=== PATIENT | male | born 1940 | race Caucasian/White ===

== ENCOUNTER 2019-05-10 11:46 | Observation (INO) ==
--- NOTE | 2019-05-10 12:35 | PROVIDER DOCUMENTATION ---
HPI-General Adult - General Stated Complaint: AFIB Time Seen by Provider: 05/10/19 12:29 Source: patient Allergies/Adverse Reactions: Patient Allergies Allergy/AdvReac Type Severity Reaction Status Date / Time No Known Allergies Allergy Verified 02/04/16 12:13 Home Medications: Home Medication List Medication Instructions Recorded Confirmed Last Taken Type Lisinopril/Hydrochlorothiazide 1 dose PO DAILY 02/04/16 03/20/16 03/20/16 04:30 History [Lisinopril-Hctz 10-12.5 mg Tab] Sertraline [Zoloft] 100 mg PO HS 02/04/16 03/20/16 03/19/16 18:00 History Digoxin [Lanoxin] 125 microgm PO DAILY #30 tablet 02/07/16 03/20/16 03/20/16 04:30 Rx Sotalol HCl [Sotalol] 120 mg PO BID #60 tablet 02/07/16 03/20/16 03/20/16 04:30 Rx SIMVAstatin [Zocor] 10 mg PO QHS 03/19/16 03/20/16 03/19/16 18:00 History - History of Present Illness -Gen Adult Nature of Presenting Problems: Pt. is 78 yom that presents with c/o low blood pressure. Pt. reports he was at his doctors office and they sent him to the ED because his BP was low. He den ies any complaints at time of exam. Location of Pain/Injury: reports: none. denies: head, face, mouth, neck, chest, upper extremity, hand(s), abdomen, back, pelvis, genitalia, lower extremity, feet, upper body, lower body, generalized, other Pain Radiation: reports: no radiation. denies: arm(s), back, buttocks, chest, epigastric, feet, groin, jaw, flank (L), legs (lower), LLQ, LUQ, neck, periumbilical, flank (R), RLQ, RUQ, shoulder(s), scapula, scrotal, sternal notch, suprapubic, legs (upper), urethral, vaginal, other Quality of Pain: reports: none. denies: aching, burning, pressure, tightness Severity: reports: mild. denies: moderate, severe Onset/Duration: reports: abrupt, just prior to arrival Timing: reports: gone now. denies: still present, improving, intermittent, getting worse Context/Activities at Onset: reports: none. denies: light activity, moderate activity, vigorous activity, recent emotional stress, recent physical stress, recent trauma history, possible bad food, cold exposure, eating, out of country travel, rest, sleep, sexual activity, other Modifying Factors: improves with: nothing Associated Symptoms: reports: denies symptoms. denies: anxiety, arm pain, ba ck/neck pain, chest pain, constipation, cough, diaphoresis, diarrhea, dizziness, EENT symptoms, fatigue, fever/chills, genitourinary problems, headaches, heartburn, joint pain, loss of appetite, malaise, muscle aches, sinus congestion/drainage, nausea, rash, seizure, shortness of breath, sensory/motor loss, pain with inspiration, swelling/mass in abdomen, syncope, vomiting, weakness, trouble walking, other Similar Symptoms Previously?: No Recently seen or treated by another doctor?: Yes Review of Systems - Adult - REVIEW OF SYSTEMS - ADULT Constitutional: reports: no symptoms reported Eyes: reports: no symptoms reported Ears, Nose, Mouth & Throat: reports: no symptoms reported Cardiovascular: reports: see HPI, irregular heart rate. denies: edema, p alpitations, syncope Respiratory: reports: no symptoms reported Gastrointestinal: reports: no symptoms reported Genitourinary: reports: no symptoms reported Musculoskeletal: reports: no symptoms reported Integumentary: reports: no symptoms reported Neurological: reports: no symptoms reported Psychiatric: reports: no symptoms reported Past History - Adult - PAST MEDICAL HISTORY-ADULT Review of Records: reports: Old Records Reviewed, Nursing Assessment Review, Medications Reviewed, Social history reviewed & non-contributory. Major Childhood Illnesses: reports: denies history Cardiovascular: reports: HTN, hyperlipidemia Respiratory: reports: denies history Gastrointestinal: reports: GERD Musculoskeletal: reports: denies history Neurological: reports: denies history Psychiatric: reports: denies history Endocrine/Immune: reports: denies history Other Conditions: reports: denies history - PRIOR SURGERIES/PROCEDURES Surgical/Procedure History: reports: none - IMMUNIZATION STATUS Childhood Immunizations: See Nurse Assessment Flu Vaccine: See Nurse Assessment - FAMILY HISTORY Family History: reviewed, not pertinent - SOCIAL HISTORY Smoking: denies Physical Exam-General - PHYSICAL EXAM-ADULT Initial Vital Signs Reviewed: Yes - CONSTITUTIONAL General Appearance: alert, no apparent distress. negative: anxious, obtunded, combative - EYES Eyes: PERRL/EOMI, pink conjunctivae - HEAD, EARS, NOSE, MOUTH & THROAT HENMT: normocephalic/atraumatic, moist mucous membranes - NECK Neck: non-tender, full range of motion, supple, normal inspection - RESPIRATORY Respiratory: lungs clear, normal breath sounds - CARDIOVASCULAR Cardiovascular: irregularly irregular. negative: extra beats, friction rub - GASTROINTESTINAL (ABDOMEN) Abdominal Exam: normal bowel sounds, non tender, soft - LYMPHATIC Lymphatic: no adenopathy - MUSCULOSKELETAL Back Exam: normal inspection, no CVA tenderness, no vertebral tenderness Extremity: normal range of motion, non-tender, normal inspection Peripheral Pulses: radial (R): 2+, radial (L): 2+ - SKIN Integumentary: normal color, normal turgor, warm/dry - NEUROLOGIC Neurologic: grossly normal, no motor/sensory deficits - PSYCHIATRIC Psych/Mental Status: normal mood/affect, normal thought content, normal thought process, oriented x 3. negative: anxious, paranoid, tearful Progress - PLAN OF CARE/RESULTS Progress/Plan/Lab Results: Vital Signs - 8 hr 05/10/19 11:51 Temperature 98.0 F Pulse Rate 89 Respiratory Rate 16 Blood Pressure 139/79 O2 Sat by Pulse Oximetry 90 L Orders Category Date Time Status Saline Loc NOW Care 05/10/19 12:27 Active CHEST-PORTABLE [RAD] Stat Exams 05/10/19 12:28 Ordered CBC WITH ELECTRONIC DIFF [HEME] Stat Lab 05/10/19 12:27 Uncollected CK PROFILE [SP CHEM] Stat Lab 05/10/19 12:27 Uncollected COMPREHENSIVE METABOLIC PANEL [CHEM] Stat Lab 05/10/19 12:27 Uncollected PRO B-NATRIURETIC PEPTIDE Stat Lab 05/10/19 12:28 Ordered PROTIME WITH INR [COAG] Stat Lab 05/10/19 12:32 Uncollected PTT [COAG] Stat Lab 05/10/19 12:32 Uncollected TROPONIN T Stat Lab 05/10/19 12:28 Uncollected EKG [EKG] Stat Ther 05/10/19 12:27 Ordered Laboratory Tests 05/10/19 05/10/19 05/10/19 12:57 12:57 12:57 WBC RBC Hgb Hct MCV MCH MCHC RDW Std Deviation Plt Count MPV Immature Gran % (Auto) Neut % (Auto) Lymph % (Auto) [place] % (Auto) Eos % (Auto) Baso % (Auto) Immature Gran # (Auto) Neut # (Auto) Lymph # (Auto) [place] # (Auto) Eos # (Auto) Baso # (Auto) PT 19.8 H INR 1.64 PTT (Actin FS) 31.2 Sodium Potassium Chloride Carbon Dioxide Anion Gap BUN Creatinine Estimated GFR/1.73 m2 BUN/Creatinine Ratio Glucose Calculated Osmolality Calcium Total Bilirubin AST ALT Alkaline Phosphatase Creatine Kinase Troponin T 0.073 Hma-A-Uxbzebgecdn Pept 1923 H Total Protein Albumin Globulin Albumin/Globulin Ratio 05/10/19 05/10/19 12:57 12:57 WBC 9.79 RBC 4.80 Hgb 14.4 Hct 42.4 MCV 88.3 MCH 30.0 MCHC 34.0 RDW Std Deviation 14.2 Plt Count 235 MPV 10.2 Immature Gran % (Auto) 0.3 Neut % (Auto) 76.2 H Lymph % (Auto) 11.6 L [place] % (Auto) 9.9 H Eos % (Auto) 1.6 Baso % (Auto) 0.4 Immature Gran # (Auto) 0.03 Neut # (Auto) 7.45 H Lymph # (Auto) 1.14 L [place] # (Auto) 0.97 H Eos # (Auto) 0.16 Baso # (Auto) 0.04 PT INR PTT (Actin FS) Sodium 136 Potassium 4.5 Chloride 99 Carbon Dioxide 22 L Anion Gap 15 BUN 25 H Creatinine 1.3 H Estimated GFR/1.73 m2 54 BUN/Creatinine Ratio 19 Glucose 103 Calculated Osmolality 277 Calcium 9.6 Total Bilirubin 0.69 AST 26 ALT 14 Alkaline Phosphatase 162 H Creatine Kinase 83 Troponin T Oiu-L-Pjcblgnzmuk Pept Total Protein 8.2 Albumin 4.7 Globulin 3.5 Albumin/Globulin Ratio 1.3 Discussed results and plan of care with patient. Patient agrees with plan and verbalizes understanding. Result Diagrams: 05/10/19 12:57 05/10/19 12:57 - EKG 1 Time of EKG reading by physician:: 11:57 EKG Read and Signed by:: Luis Miguel Gomez EKG Interpretation (*Must complete 3 of following elements*): Abnormal Rate: 90 Rhythm: A-Fib - CONSULTS/PCP/HOSPITALIST Notification #1 *Consult/PCP/Hospitalist*: Patrizia for Dr. Greenwood Time Discussed: 14:22 Reason/Comments: Consult Consult Disposition: other #2 Consult: Triny for Dr. Arechiga Time Discussed: 14:23 Reason/Comments: Admission Consult Disposition: Will see in ED, Admit Departure - Departure Date of Disposition Decision: 05/10/19 Time of Disposition Decision: 14:24 DIAGNOSIS: Dizziness, Near syncope A-fib Qualifiers: Atrial fibrillation type: unspecified Qualified Code(s): I48.91 - Unspecified atrial fibrillation Disposition: ADMITTED INPATIENT 09 Certified Medical Emergency: Emergent Condition: Stable Referrals and Follow-Ups: Mei Finn MD [Primary Care Provider] - - Critical Care Note This patient required my direct & personal management of CC.: No Attestation - Physician/ [place] Attestation Patient care was provided by Advanced Practice Provider:: Yes Advanced Practice Provider:: Nimo Marie Advanced Practice Provider documentation review:: The Mid-level provider documentation, treatment plan and medical decision making was reviewed by the physician who agrees with all treatment and medical decision making by the MLP. The physician spent face to face time with patient:: No Advanced Practice Provider documentation review:: Supervising physician onsite and consulted in the evaluation and care of this patient. The physician did not have a face to face encounter with the patient.
[2019-05-10 13:10] LABS: BASO# 0.04 X1000 (0.0-0.2); BASO% 0.4 % (0.0-0.8); EOS# 0.16 X1000 (0.0-0.7); EOS% 1.6 % (0.0-10.0); HEMATOCRIT 42.4 % (42.0-52.0); HEMOGLOBIN 14.4 g/dL (14.0-18.0); IMM GRAN# 0.03 X1000 (0.0-0.04); IMM GRAN% 0.3 % (0.0-0.5); LYMPH# 1.14 X1000 (1.2-3.4); LYMPH% 11.6 % (20.5-51.1); MCV 88.3 FL (81-99); MONO# 0.97 X1000 (0.11-0.59); MONO% 9.9 % (1.7-9.3); MPV 10.2 FL (7.4-10.4); NEUT# 7.45 X1000 (1.4-6.5); NEUT% 76.2 % (42.2-75.2); PLT 235 X1000 (130-400); RDW 14.2 % (11.5-14.5); WBC 9.79 X1000 (4.8-10.8)
[2019-05-10 13:18] LABS: INR 1.64; PROTIME 19.8 Seconds (11.0-16.0); PTT 31.2 Seconds (22.3-41.8)
[2019-05-10 13:30] LABS: ALB/GLOB RATIO 1.3; ALBUMIN 4.7 g/dL (3.5-5.0); CALCIUM 9.6 mg/dL (8.8-10.2); CREATININE 1.3 mg/dL (0.7-1.2); POTASSIUM 4.5 mmol/L (3.5-5.1); TOTAL BILIRUBIN 0.69 mg/dL (0.20-1.00); TOTAL PROTEIN 8.2 g/dL (6.3-8.3)
--- NOTE | 2019-05-10 13:36 | Diag Imaging Result Doc PS360 ---
EXAM: CHEST-PORTABLE 05/10/2019 HISTORY: CP TECHNIQUE: AP portable at 1323 COMMENT: There are some platelike opacities in the left base which are probably due to fibrosis. This has not changed appreciably since 02/04/2016. The heart size and pulmonary vascularity are similar in appearance as well. There are emphysematous changes in the upper lung zones. IMPRESSION: COPD. Electronically signed by Kristopher Nieto 05/10/2019 1:34 PM
--- NOTE | 2019-05-10 15:11 | EKG Report ---
Test Performed on : 05/10/2019 12:37:31 PM Test Reason : CP Blood Pressure : / mmHG Vent. Rate : 080 BPM Atrial Rate : 375 BPM P-R Int : 000 ms QRS Dur : 088 ms QT Int : 368 ms P-R-T Axes : 000 059 003 degrees QTc Int : 424 ms Atrial fibrillation. Low voltage QRS Nonspecific ST abnormality Abnormal ECG No previous ECGs available Unconfirmed Result
[2019-05-10] MEDS ORDERED: ZOFRAN IV PRN (16:07)
[2019-05-10] MEDS ORDERED: NS 500 ML IV ONE (16:07)
[2019-05-10] MEDS ORDERED: TYLENOL PO PRN (16:07)
--- NOTE | 2019-05-10 17:33 | ECHO REPORT ---
ORDER DATE: 05/10/2019 INDICATION: Atrial fibrillation. FINDINGS: 1. Right atrium appears moderately enlarged with a dimension of 5.3 cm. 2. Mild tricuspid regurgitation. The RV systolic pressure is 60. 3. Normal RV systolic function. The right ventricle does appear to be dilated. 4. No significant pulmonic insufficiency. 5. Mild left atrial enlargement with a dimension of 4 cm. 6. No mitral prolapse. Mild mitral regurgitation. 7. Normal LV size, end-diastolic dimension of 5.5 cm. Normal wall thicknesses with a posterior and interventricular septal thickness of 1.1 cm each. Normal LV systolic function. Estimated EF of 55 to 60% with normal wall motion. 8. Aortic valve appears somewhat calcified. The peak gradient across the valve is 19 with a mean of 12. Valve area is 2.16 cm2. This would suggest minimal aortic stenosis. There is mild aortic insufficiency. The valve is trileaflet. 9. Aorta appears normal in visualized segments. 10. There is no pericardial effusion identified on this study. cc: Porfirio Upton MD
--- NOTE | 2019-05-10 21:08 | HISTORY AND PHYSICAL ---
PRIMARY CARE PROVIDER: Mei Finn MD [employer] HAND: David Hendrickson MD CHIEF COMPLAINT: Dizzy spells and weakness. HISTORY OF PRESENT ILLNESS: Mr. Millan is a 78-year-old male who carries a past medical history of atrial fibrillation, status post cardioversion in 2016. Per son's report, he thought that he was in a normal rhythm since that time. Other history: Hypertension, dyslipidemia, stress and depression. The patient reports for the last couple of months, he has been having dizzy spells, weakness with walking, shortness of breath with ambulation, especially in the heat or when climbing stairs. Son at the bedside also reports a decrease in his memory. He denies any palpitations, chest pain, nausea, vomiting, diarrhea, constipation, fever or chills. He did go to be checked out at his primary care provider Dr. Mei Finn's office today. There was a reported near-syncope episode; however, the patient and his son deny, but they were told that he had a lower blood pressure and his heart rhythm was "running away." Unsure at the time in office if it was atrial fibrillation with RVR; however, now he has atrial fibrillation without RVR, rate- controlled in the 80s. First set of troponins is 0.073. He does have an acute kidney injury with a BUN of 25, creatinine 1.3. Digoxin level 0.9. We will admit him to medical telemetry, do an echocardiogram, continue to trend his troponins and continue him on his home digoxin. He does not look like he is on any anticoagulation at home except for a low-dose aspirin. We will consult Dr. Greenwood as well. PAST MEDICAL HISTORY: 1. Atrial fibrillation. 2. Hypertension. 3. Dyslipidemia. 4. Stress. 5. Depression. PAST SURGICAL HISTORY: None. FAMILY HISTORY: Positive for hypertension. SOCIAL HISTORY: He lives with his son. He quit smoking over 10 years ago, but he was about a pack to 8-aers-dea-day smoker. No alcohol, tobacco or illicit drug use. He has been retired for quite some time. ALLERGIES: No known drug allergies. MEDICATIONS: Home medications are being compiled. REVIEW OF SYSTEMS: Twelve-point review of systems was completed and negative except for those mentioned in HPI. PHYSICAL EXAMINATION: VITAL SIGNS: Temperature is 98 degrees, heart rate 92, respirations 22, blood pressure 133/69, O2 is 95% on room air. GENERAL: Mr. Millan is a pleasant but vbfs-vb-diictdl 78-year-old male who is lying on the stretcher in no acute distress. HEENT: Atraumatic, normocephalic. PERRL. NECK: Supple. Trachea midline. CARDIOVASCULAR: Irregularly irregular. No murmurs, gallops or rubs. RESPIRATORY: Lung sounds clear bilaterally. GASTROINTESTINAL: Soft, nontender, nondistended. Positive bowel sounds x4 quadrants. EXTREMITIES: Lower extremities are negative for edema. NEUROLOGIC: No focal deficits noted. He is hard of hearing. DIAGNOSTIC DATA: EKG: Atrial fibrillation at 80 beats per minute. Chest x-ray: COPD. LABORATORY DATA: White count 9, hemoglobin and hematocrit 14 and 42, platelet count is 235,000. PT is 19.8, INR 1.64. Sodium 136, potassium 4.5, BUN 25, creatinine 1.3, blood glucose is 103, alkaline phosphatase is 162. ProBNP was 1923. Digoxin level is 0.9. ASSESSMENT AND PLAN: 1. Weakness and shortness of breath associated with atrial fibrillation. There was some reported hypotension at the doctor's office. He is now normotensive. We will admit him to medical telemetry floor. Consult Cardiology. Check an echocardiogram. Continue to trend his cardiac enzymes. He does not complain of any chest pain. We can get physical therapy involved after his cardiac workup. 2. Atrial fibrillation. We will continue his digoxin. Currently not on any anticoagulation that I can find except for low-dose aspirin. Per son report, he thought that he had been in a normal rhythm since his cardioversion back in 2016. Currently rate controlled. 3. Questionable hypoxemia upon arrival. He is now saturating well on room air. Unsure how accurate this was, but we will provide him with supplemental oxygen if needed. He does not have any difficulty breathing at this time while lying in the bed. 4. Acute kidney injury. The patient does appear to be a little dehydrated. We will give him some intravenous fluids overnight, recheck his BUN and creatinine in the a.m. 5. Clinical dehydration. We will continue with intravenous fluids overnight. Check his volume status in the a.m. 6. Hypertension. We will continue home medications when verified. 7. Dyslipidemia. 8. Stress and situational depression. We will continue home medications when verified. Further recommendations to follow physician evaluation, laboratory and diagnostic data. Dictated by LULU Vauhgan for Jaida Arechiga MD cc: MD David Flores MD Lindsay E. Smith, MD
[2019-05-10] MEDS: NS 1,000 ML IV SCH (21:35)
[2019-05-10] MEDS: ZOLOFT PO SCH (21:36)
[2019-05-10] MEDS: ZOCOR PO SCH (21:37)
[2019-05-11] MEDS: NS 1,000 ML IV SCH ×2 (01:42→08:53)
--- NOTE | 2019-05-11 06:28 | Diag Imaging Result Doc PS360 ---
CHEST-PORTABLE - 05/11/2019 INDICATION: follow up COMPARISON: 05/10/2019 FINDINGS: There is no change from prior. IMPRESSION: No change from prior. Electronically signed by Vincent Maldonado 05/11/2019 6:26 AM
--- NOTE | 2019-05-11 07:41 | EKG Report ---
Test Performed on : 05/11/2019 06:39:10 AM Test Reason : afib Blood Pressure : / mmHG Vent. Rate : 067 BPM Atrial Rate : 075 BPM P-R Int : 000 ms QRS Dur : 084 ms QT Int : 390 ms P-R-T Axes : 000 080 079 degrees QTc Int : 412 ms Atrial fibrillation. Septal infarct , age undetermined Abnormal ECG When compared with ECG of 10-MAY-2019 12:37, (Unconfirmed) Nonspecific T wave abnormality no longer evident in Inferior leads Nonspecific T wave abnormality now evident in Lateral leads Confirmed by Kd Briceño MD ([id number]) on 05/13/2019 6:55:27 AM
[2019-05-11 08:10] LABS: BASO# 0.04 X1000 (0.0-0.2); BASO% 0.6 % (0.0-0.8); EOS# 0.28 X1000 (0.0-0.7); EOS% 3.9 % (0.0-10.0); HEMATOCRIT 39.5 % (42.0-52.0); HEMOGLOBIN 13.1 g/dL (14.0-18.0); IMM GRAN# 0.03 X1000 (0.0-0.04); IMM GRAN% 0.4 % (0.0-0.5); LYMPH# 0.82 X1000 (1.2-3.4); LYMPH% 11.4 % (20.5-51.1); MCH 29.6 PG (27-31); MCHC 33.2 g/dL (33-37); MCV 89.4 FL (81-99); MONO# 0.66 X1000 (0.11-0.59); MONO% 9.2 % (1.7-9.3); NEUT# 5.35 X1000 (1.4-6.5); NEUT% 74.5 % (42.2-75.2); PLT 197 X1000 (130-400); RBC 4.42 XMIL (4.7-6.1); RDW 14.2 % (11.5-14.5); WBC 7.18 X1000 (4.8-10.8)
[2019-05-11 08:20] LABS: AGAP 13; ALB/GLOB RATIO 1.2; ALBUMIN 3.8 g/dL (3.5-5.0); ALKALINE PHOSPHATASE 135 U/L (32-122); BUN 26 mg/dL (8-22); CALCIUM 8.8 mg/dL (8.8-10.2); CHLORIDE 103 mmol/L (98-107); COSMO 277; CREATININE 1.1 mg/dL (0.7-1.2); ESTIMATED GFR > 60; GLUCOSE 99 mg/dL (70-104); GOT 24 U/L (10-34); GPT 13 U/L (10-44); POTASSIUM 4.1 mmol/L (3.5-5.1); SODIUM 136 mmol/L (136-145); TCO2 20 mmol/L (25-35); TOTAL PROTEIN 6.9 g/dL (6.3-8.3)
[2019-05-11] MEDS: LANOXIN PO SCH (08:54)
[2019-05-11] MEDS: ZOLOFT PO SCH (21:01)
[2019-05-11] MEDS: ZOCOR PO SCH (21:01)
--- NOTE | 2019-05-12 01:12 | PROGRESS NOTE ---
DATE: 05/11/2019 SUBJECTIVE: The patient is resting comfortably. He states that he feels a lot better today. He was able to walk into the bathroom without dizziness. OBJECTIVE: Vital Signs: Temperature 97.6 degrees, blood pressure 124/50, heart rate 93, respirations 18, O2 saturation is 98% on 2 L nasal cannula. General: This is a chronically ill- appearing elderly male lying in bed in no acute distress. Heart: S1, S2 normal. Regular rate and rhythm. Lungs: Equal air entry bilaterally. No wheezing. No rales. No rhonchi. Abdomen: Positive bowel sounds. Soft, nontender, nondistended. Extremities: No edema, no cyanosis. Neurologic: The patient is alert and oriented x3. LABORATORY DATA: White blood cell count 7.1, hemoglobin 13, hematocrit 39, platelets 197,000. Sodium 136, potassium 4.1 chloride 103, CO2 is 20, BUN 26, creatinine 1.1, glucose 99, proBNP 1507. ASSESSMENT AND PLAN: 1. Dizziness. Improved. I suspect that this was likely secondary to dehydration. The patient appears to be back to baseline. 2. Atrial fibrillation. The patient is currently rate controlled. Continue on digoxin. The patient will follow up with Cardiology as an outpatient. 3. Acute kidney injury. Improved. The patient is eating and drinking well. We will discontinue the IV fluids. 4. Hypertension, controlled. 5. Situational depression. Continue on Zoloft. 6. Deep vein thrombosis prophylaxis. Continue with SCDs. 7. Physical therapy has been consulted to mobilize the patient. 8. Disposition. The patient will likely be discharged home tomorrow. I updated the patient's son on the patient's medical condition. cc: Jaida Arechiga MD [facility]
[2019-05-12 08:36] LABS: HEMOGLOBIN 14.1 g/dL (14.0-18.0); MCH 30.3 PG (27-31); MCHC 34.4 g/dL (33-37); MCV 88.2 FL (81-99); MPV 10.3 FL (7.4-10.4); RBC 4.65 XMIL (4.7-6.1); WBC 9.88 X1000 (4.8-10.8)
[2019-05-12 08:54] LABS: AGAP 16; BUN 22 mg/dL (8-22); CALCIUM 9.4 mg/dL (8.8-10.2); CHLORIDE 102 mmol/L (98-107); COSMO 277; ESTIMATED GFR > 60; GLUCOSE 101 mg/dL (70-104); MAGNESIUM 1.8 mg/dL (1.5-2.7); PHOSPHORUS 3.4 mg/dL (2.7-4.5); POTASSIUM 4.4 mmol/L (3.5-5.1); SODIUM 137 mmol/L (136-145); TCO2 19 mmol/L (25-35)
[2019-05-12] MEDS: LANOXIN PO SCH (09:13)
[2019-05-12 13:01] VITALS: BP 134/85
== END 2019-05-12 15:23 | disposition home or self-care (01) ==
LOC: SUPCPDRO → EDIPHOLD 11:46 → ED 11:46 → 3N 20:52
PROVIDERS: ATTEND Internal Medicine

== ENCOUNTER 2019-05-23 10:58 | Inpatient (IN) ==
--- NOTE | 2019-05-23 12:00 | PROVIDER DOCUMENTATION ---
HPI-General Adult - General Chief Complaint: Weakness Stated Complaint: dehydration, weakness Time Seen by Provider: 05/23/19 11:01 Source: patient, family Allergies/Adverse Reactions: Patient Allergies Allergy/AdvReac Type Severity Reaction Status Date / Time No Known Allergies Allergy Verified 02/04/16 12:13 Home Medications: Home Medication List Medication Instructions Recorded Confirmed Last Taken Type Sertraline [Zoloft] 100 mg PO HS 02/04/16 05/23/19 05/09/19 18:00 History 1 tab Digoxin [Lanoxin] 125 microgm PO DAILY #30 tablet 02/07/16 05/23/19 05/10/19 08:00 Rx 125 mcg SIMVAstatin [Zocor] 10 mg PO QHS 03/19/16 05/10/19 05/09/19 18:00 History 1 tab Aspirin [Lo-Dose Aspirin EC] 81 mg PO DAILY 05/10/19 05/23/19 05/10/19 08:00 History 1 tab ATORVAstatin [Lipitor] 40 mg PO DAILY 05/23/19 05/23/19 Unknown History - History of Present Illness -Gen Adult Nature of Presenting Problems: This is a 78yo male who presents with CC of weakness. The patient and family report that has been having dizziness and a headache as well as poor appetite. The family reports that the patient has been weak for the past 2 weeks, but this morning he was unable to get up out of bed. The patient was sent if from his doctors office. The patient does have a history of afib. Location of Pain/Injury: reports: head Pain Radiation: reports: other (neck) Quality of Pain: reports: aching Associated Symptoms: reports: vomiting, weakness Review of Systems - Adult - REVIEW OF SYSTEMS - ADULT ROS:: ROS per family (some assistance from patient. Patient with baseline dimentia) Constitutional: reports: fever Eyes: reports: no symptoms reported. denies: decreased vision Ears, Nose, Mouth & Throat: reports: ear pain Cardiovascular: reports: no symptoms reported. denies: chest pain Respiratory: reports: shortness of breath Gastrointestinal: reports: vomiting. denies: abdominal pain Genitourinary: reports: no symptoms reported Musculoskeletal: reports: no symptoms reported Integumentary: reports: no symptoms reported. denies: rash Neurological: reports: headache/migraines Psychiatric: reports: depression, panic attacks Endocrine: reports: no symptoms reported Hematologic/Lymphatic: reports: no symptoms reported Allergic/Immunologic: reports: no symptoms reported Past History - Adult - PAST MEDICAL HISTORY-ADULT Review of Records: reports: Old Records Reviewed Major Childhood Illnesses: reports: denies history Cardiovascular: reports: HTN, hyperlipidemia Respiratory: reports: denies history Gastrointestinal: reports: GERD Musculoskeletal: reports: denies history Neurological: reports: denies history Psychiatric: reports: denies history Endocrine/Immune: reports: denies history Other Conditions: reports: denies history - PRIOR SURGERIES/PROCEDURES Surgical/Procedure History: reports: none - IMMUNIZATION STATUS Childhood Immunizations: See Nurse Assessment Flu Vaccine: See Nurse Assessment - FAMILY HISTORY Family History: reviewed, not pertinent Physical Exam-General - CONSTITUTIONAL General Appearance: appears well, alert - EYES Eyes: PERRL/EOMI. negative: conjuctival exudate - HEAD, EARS, NOSE, MOUTH & THROAT HENMT: normocephalic/atraumatic. 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 - PSYCHIATRIC Psych/Mental Status: oriented x 3 Progress - PLAN OF CARE/RESULTS Progress/Plan/Lab Results: Vital Signs - 8 hr 05/23/19 11:22 Temperature 98.6 F Pulse Rate 90 Respiratory Rate 22 Blood Pressure 142/77 O2 Sat by Pulse Oximetry 88 L Orders Category Date Time Status CHEST-1 VIEW [RAD] Stat Exams 05/23/19 11:59 Ordered CBC WITH DIFF [HEME] Stat Lab 05/23/19 11:59 Uncollected COMPREHENSIVE METABOLIC PANEL [CHEM] Stat Lab 05/23/19 11:59 Uncollected LACTATE, PLASMA [CHEM] Stat Lab 05/23/19 11:59 Uncollected URINALYSIS W/POSS RFLX CULT [URINALYSIS] Stat Lab 05/23/19 11:59 Uncollected Result Diagrams: 05/23/19 12:02 05/23/19 12:02 - REASSESSMENT Reassessment #1 Status: other (Patient noted to have hyponatremia and hypoxia, and will be admitted to inpatient. Discussed case with hospitalist team who have accepted the patient.) - XRAY 1 XRAY Study: Chest ( EXAM: CHEST-1 VIEW HISTORY: Weakness and shortness of breath TECHNIQUE: Single view COMPARISON: 05/10/2019 FINDINGS: The lungs are hyperexpanded. There are increased interstitial markings in the mid lungs believed to be fibrosis. Mild cardiomegaly. No pleural effusions identified. IMPRESSION: Stable chest Electronically signed by Avtar Card 05/23/2019 12:26 PM 05/23/19 1226 Interpreting Physician: Avtar Card MD Dictated Date/Time: 05/23/19 1225 cc: Adrian Estevez MD; Mei Finn MD) - CT/MRI 1 CT Study: Head ( CT HEAD W/O CONTRAST - 05/23/2019 INDICATION: Dizziness COMPARISON: None FINDINGS: There is mild diffuse cerebral atrophy. There is mild periventricular white matter chronic microvascular ischemia. No intracranial mass or hemorrhage. The skull is intact. The sinuses, mastoids, and middle ears are clear. There is severe vascular calcification of the carotid siphons bilaterally. IMPRESSION: No acute process. This exam was performed using automated exposure control, adjustment of mA or kV according to patient si ze, and/or use of iterative reconstruction technique Electronically signed by Vnicent Maldonado 05/23/2019 2:21 PM 05/23/19 1421 Interpreting Physician: Vincent Maldonado MD Dictated Date/Time: 05/23/19 1420 cc: Adrian Estevez MD; Mei Finn MD) Departure - Departure Date of Disposition Decision: 05/23/19 Time of Disposition Decision: 13:30 DIAGNOSIS: Weakness, Hyponatremia, Hypoxia Disposition: ADMITTED INPATIENT 09 Certified Medical Emergency: Emergent Condition: Serious Referrals and Follow-Ups: Mei Finn MD [Primary Care Provider] - - Critical Care Note This patient required my direct & personal management of CC.: No Attestation - Physician/ [place] Attestation Patient care was provided by Advanced Practice Provider:: No The physician spent face to face time with patient:: Yes Advanced Practice Provider documentation review:: Supervising physician onsite and consulted in the evaluation and care of this patient. The physician did have a face to face encounter with the patient.
--- NOTE | 2019-05-23 12:03 | EKG Report ---
Test Performed on : 05/23/2019 11:38:05 AM Test Reason : Weakness Blood Pressure : / mmHG Vent. Rate : 086 BPM Atrial Rate : 070 BPM P-R Int : 000 ms QRS Dur : 094 ms QT Int : 384 ms P-R-T Axes : 000 057 -10 degrees QTc Int : 459 ms Atrial fibrillation. with a competing junctional pacemaker. Low voltage QRS Septal infarct (cited on or before 11-MAY-2019) Abnormal ECG When compared with ECG of 11-MAY-2019 06:39, T wave inversion now evident in Inferior leads Nonspecific T wave abnormality no longer evident in Lateral leads QT has lengthened Unconfirmed Result
[2019-05-23 12:23] LABS: URINE SOURCE CLEAN CATCH
[2019-05-23 12:26] LABS: BASO# 0.03 X1000 (0.0-0.2); BASO% 0.3 % (0.0-0.8); EOS% 0.9 % (0.0-10.0); HEMATOCRIT 41.8 % (42.0-52.0); HEMOGLOBIN 14.3 g/dL (14.0-18.0); IMM GRAN# 0.03 X1000 (0.0-0.04); IMM GRAN% 0.3 % (0.0-0.5); MCH 29.6 PG (27-31); MCHC 34.2 g/dL (33-37); MCV 86.5 FL (81-99); MONO# 0.91 X1000 (0.11-0.59); MONO% 8.2 % (1.7-9.3); NEUT# 9.01 X1000 (1.4-6.5); NEUT% 81.3 % (42.2-75.2); PLT 233 X1000 (130-400); RBC 4.83 XMIL (4.7-6.1); RDW 13.8 % (11.5-14.5); WBC 11.08 X1000 (4.8-10.8)
--- NOTE | 2019-05-23 12:28 | Diag Imaging Result Doc PS360 ---
EXAM: CHEST-1 VIEW HISTORY: Weakness and shortness of breath TECHNIQUE: Single view COMPARISON: 05/10/2019 FINDINGS: The lungs are hyperexpanded. There are increased interstitial markings in the mid lungs believed to be fibrosis. Mild cardiomegaly. No pleural effusions identified. IMPRESSION: Stable chest Electronically signed by Avtar Card 05/23/2019 12:26 PM
[2019-05-23 12:30] LABS: BILIRUBIN URINE NEGATIVE (NEGATIVE); BLOOD URINE NEGATIVE (NEGATIVE); COLOR YELLOW; GLUCOSE URINE NEGATIVE (NEGATIVE); KETONE URINE NEGATIVE (NEGATIVE); LEUKOCYTES URINE NEGATIVE (NEGATIVE); NITRITE URINE NEGATIVE (NEGATIVE); PROTEIN URINE NEGATIVE (NEGATIVE); SP GRAVITY URINE 1.008; TURBIDITY URINE CLEAR (CLEAR); UROBILINOGEN URINE NORMAL (NORMAL)
[2019-05-23 12:32] LABS: UR EPITHELIAL CELLS <10 /HPF (<10); URINE BACTERIA NEGATIVE /HPF; URINE RBC <10 /HPF (<10); URINE WBC <10 /HPF (<10)
[2019-05-23 12:46] LABS: AGAP 13; ALB/GLOB RATIO 1.3; ALBUMIN 4.3 g/dL (3.5-5.0); ALKALINE PHOSPHATASE 166 U/L (32-122); BUN 13 mg/dL (8-22); CALCIUM 9.5 mg/dL (8.8-10.2); CHLORIDE 93 mmol/L (98-107); CK PROFILE 55 U/L (24-204); COSMO 260; ESTIMATED GFR > 60; GLUCOSE 107 mg/dL (70-104); GOT 30 U/L (10-34); GPT 21 U/L (10-44); MAGNESIUM 1.8 mg/dL (1.5-2.7); POTASSIUM 4.9 mmol/L (3.5-5.1); SODIUM 129 mmol/L (136-145); TCO2 23 mmol/L (25-35); TOTAL BILIRUBIN 0.72 mg/dL (0.20-1.00); TOTAL PROTEIN 7.7 g/dL (6.3-8.3)
[2019-05-23 12:58] LABS: INR 1.51; PROTIME 18.5 Seconds (11.0-16.0)
[2019-05-23 12:59] LABS: PTT 34.6 Seconds (22.3-41.8)
--- NOTE | 2019-05-23 14:23 | Diag Imaging Result Doc PS360 ---
CT HEAD W/O CONTRAST - 05/23/2019 INDICATION: Dizziness COMPARISON: None FINDINGS: There is mild diffuse cerebral atrophy. There is mild periventricular white matter chronic microvascular ischemia. No intracranial mass or hemorrhage. The skull is intact. The sinuses, mastoids, and middle ears are clear. There is severe vascular calcification of the carotid siphons bilaterally. IMPRESSION: No acute process. This exam was performed using automated exposure control, adjustment of mA or kV according to patient size, and/or use of iterative reconstruction technique Electronically signed by Vincent Maldonado 05/23/2019 2:21 PM
[2019-05-23] MEDS ORDERED: ZOFRAN IV PRN (15:50)
[2019-05-23] MEDS ORDERED: TYLENOL PO PRN (15:50)
[2019-05-23] MEDS ORDERED: LOVENOX SUBQ SCH (16:00)
[2019-05-23] MEDS: NS 1,000 ML IV SCH ×2 (17:23→20:49)
[2019-05-23] MEDS ORDERED: PROTONIX IV SCH (17:45)
[2019-05-23] MEDS ORDERED: SODIUM CHLORIDE 0.9% INJ ONE (18:08)
[2019-05-23] MEDS ORDERED: PROTONIX IV ONE (18:08)
--- NOTE | 2019-05-23 18:33 | HISTORY AND PHYSICAL ---
[employer] DIRECTOR: Mei Finn. CHIEF COMPLAINT: Weakness. HISTORY OF PRESENT ILLNESS: Mr. Millan is a 78-year-old male who has a past medical history atrial fibrillation, hypertension, dyslipidemia, stress and depression. He presented to the ER today with complaints of weakness and decreased appetite. Patient states he was in the hospital roughly about a week or 2 ago where he was having dizzy spells and weakness at that time and some shortness of breath associated with his atrial fibrillation. He was discharged home. Since he has been home he states he has still not felt good. He still been having weakness. He has still not been eating very well. He has not been complaining of any other symptoms. He is not short of breath at this time. However, the ER physician stated when he came in that when they hooked him up to the monitor his O2 saturation on room air was 88%. They put him on 2 L nasal cannula and now his oxygen level is 95% on 2 L. The patient states that over the past few years he has just been having more and more short-term memory loss. He has been having occasional headaches, occasional dizzy spells. His 4 years ago and he is not ate good since. He has just been having more and more weakness. He has not been able to eat very much. He is living with his grandson. His son who lives next door checks on him very often but he states he just feels very lonely. The patient is not complaining any chest pain or palpitation. He denies any fever or chills. Denies any other pertinent symptoms at this time. States he has not had any falls. Not had any trouble his bowels or his bladder. PAST MEDICAL HISTORY: Atrial fibrillation, hypertension, dyslipidemia, stress and depression. PAST SURGICAL HISTORY: He had a cardioversion with his atrial fibrillation and he had some kind nose surgery. FAMILY HISTORY: Positive for hypertension. SOCIAL HISTORY: He lives with his grandson. He used to smoke but he quit over 10 years ago and he is to be a 2 pack-a-day smoker. He is a . His 4 years ago. They were for 50 years. He denies any alcohol, tobacco, or illicit drug use. 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 ALLERGIES: No known drug allergies. MEDICATIONS: Zoloft 100 mg p.o. at bedtime, digoxin 125 mcg p.o. daily, aspirin 81 mg p.o. daily, atorvastatin 40 mg p.o. daily, donepezil 5 mg p.o. daily, Remeron 50 mg p.o. daily. LABORATORY AND DIAGNOSTICS: White blood cell count 11.08, red blood cell count 4.83, hemoglobin 14.3, hematocrit 41.8, platelet count 233,000. PT 18.5, INR 1.51, PTT 34.6. Sodium 129, potassium 4.9, chloride 93, carbon dioxide 23, anion gap 13, BUN 13, creatinine 1.0, estimated GFR greater than 60, glucose 107, calcium 9.5, magnesium 1.8, total bilirubin 0.72, AST is 30, ALT 21, alkaline phosphatase is 166, creatine kinase is 55, troponin less than 0.01, plasma lactate 1.9. Urinalysis is negative. Digoxin 0.7. REVIEW OF SYSTEMS: A 12 point resist review of systems has been obtained. All are negative except what is stated above in HPI. PHYSICAL EXAMINATION: VITAL SIGNS: Temperature 98.6 degrees, pulse rate 79, respiratory rate 16, blood pressure 130/65, O2 saturations 95, height 6 feet 1, weight 199 pounds. GENERAL: This is a 78-year-old male. He is lying in ER stretcher. He is well nourished and well developed. He is in no acute distress at present time. HEENT: Atraumatic, normocephalic. Pupils equal, round, reactive to light. Sclerae is anicteric. Mucous membranes are moist. NECK: Supple. No lymphadenopathy. Trachea is midline. No JVD. No thyromegaly. No bruits. CARDIOVASCULAR: Regular rate and rhythm. No murmurs, gallops, or rubs appreciated. RESPIRATORY: Lung sounds are clear with equal chest excursion. Respirations are nonlabored with no accessory muscle usage. ABDOMEN: Soft, nontender, nondistended. Bowel sounds are present x4. NEURO: Cranial nerves 2-12 are intact. The patient is awake, alert, oriented. MUSCULOSKELETAL: Full distal strength noted. No abnormalities. No deformities. EXTREMITIES: No clubbing, no cyanosis, no edema. DP and PT pulses are present and palpable. SKIN: Warm, dry. There is a small scab noted to the right lower extremity. The scab is intact. No rashes. No bruises. No diaphoresis. ASSESSMENT AND PLAN: 1. Generalized weakness. Will admit this patient to the medical floor for observation. The patient has been having dizzy spells and shortness of breath when walking distances and patient has been having some hypoxia. We are going to place him on O2 per protocol, will repeat some labs in the morning. Place him on a healthy heart diet. Place him on classroom monitor. He can be up with assist, check some vitamin levels on the patient. Reorder all his home medications, we are going to give him some IV fluid hydration. 2. Hyponatremia. He was given a bolus in the emergency room. We are going to give him normal saline at 100 mL/h. 3. Atrial fibrillation. This seems to be a low rate for the patient at this time. The patient does have chronic atrial fibrillation. He did have a cardioversion in the past. We will place him on classroom monitor and continue to watch this. He is on digoxin. We will reorder his digoxin. He may need penitentiary anticoagulation. I will discuss this in future. 4. Hypertension. Patient is not on any medications for his hypertension at this time. We will monitor him for his hypertension and start him on some medications for that if he needs it. 5. Dementia/Alzheimer disease. The patient is on Aricept. He does complain of short-term memory loss. I have restarted this medication. 6. Depression. The patient is on Zoloft at home. I suspect that he is having increasing depression at home. He states he feels very lonely most the time and this is why he does not eat a lot. I suspect this is part of the reason he is having a lot of weakness. We will continue his Zoloft. PLAN: We have admitted him to the medical floor. We are going to continue his home medications. Place him on IV fluid hydration. Repeat some labs in the morning. Place him on a healthy heart diet. Place him on classroom monitor. All other further treatment and recommendations pending hospital course and laboratory data. Dictated by LULU Costa for Blake Loyd MD cc: Mei Finn MD I agree with most components of history, physical, assessment and plan. A separate addendum has been dictated. CARLOS
[2019-05-23] MEDS ORDERED: PROTONIX 80 MG in NS 80 ML IV ONE (19:00)
--- NOTE | 2019-05-23 19:14 | HISTORY AND PHYSICAL ---
ADDENDUM: I agree with most components of history, physical, assessment, and plan. In brief, Mr. Millan is a 78-year-old man with past medical history of atrial fibrillation, essential hypertension, anxiety, cognitive impairment, who was recently hospitalized just 5 days ago for chief complaints of weakness and dizziness and was found to be having clinical volume depletion and was resuscitated with intravenous fluids and sent home. He comes back again with chief complaints of dizziness and weakness, which has been ongoing since last 5 days. The patient has cognitive impairment. Patient's son provides most of the history. In the emergency room, he was found to be hyponatremic, hypochloremic, and so the hospitalist team was consulted for further management. When I saw him at bedside, he had an episode of coughing spell followed by vomiting with blood in it. He has not had these symptoms at home as per the son. However, patient does have memory impairment. He is not able to provide a definite to history regarding this. CURRENT VITALS: Temperature 99.3 degrees, pulse 83, respiratory 21, blood pressure 130/76. He is saturating 94% room air. PHYSICAL EXAMINATION: He does have inspiratory crackles at the left lung base. No wheeze or rhonchi. No egophony. LUNG EXAMINATION: The right hemithorax is essentially unremarkable. HEART: His S1-S2 is normal. Heart rhythm is irregularly irregular. No murmur, rub, or gallop. ABDOMEN: Soft. No epigastric tenderness. No hepatosplenomegaly. EXTREMITIES: He does not have lower extremity edema. He has poor nail health bilaterally. NEUROLOGIC: He is alert. He is oriented to himself, to the place and situation, partially though he does have memory impairment, especially recent memory. LABORATORY DATA: Remarkable for mild leukocytosis, normal hemoglobin, normal platelet count. His coagulation is normal. He does have hyponatremia hypochloremia. His initial troponins were unremarkable. Urinalysis was normal. His digoxin level was 0.7. Influenza screen was negative. IMAGING: Chest x-ray on admission had increased interstitial marking in mid lungs due to fibrosis and mild cardiomegaly. EKG had atrial fibrillation with controlled ventricular response. ASSESSMENT AND PLAN: 1. Hemoptysis versus hematemesis. I will get CT scan angiogram to rule out pulmonary embolism leading to lung infarct or lung mass. Pneumonia is also other possibility. However, there is inconsistent history of him having cough at home. I will keep him on aspiration precautions and NPO except medications. I will also follow up with D-dimer. I will start him on a bolus of intravenous pantoprazole 80 mg and intravenous Protonix b.i.d. and follow up with frequent CBC. Depending on his course, I will consider consulting Gastroenterology or pulmonology in the future. I will follow up with Legionella urine antigen considering his hyponatremia and suspected pneumonia. 2. Hyponatremia, hypochloremia. Could be related to clinical volume depletion. Is also listed to be taking sertraline. I will resuscitate him with intravenous fluids and follow up with [facility] tomorrow. 3. Chronic atrial fibrillation. He did have ablation in 2016, but he has been consistent in atrial fibrillation, which could be a contributing factor towards his weakness. Currently, his rate is well controlled. I will continue him on his home digoxin. Depending on his course, he would need further discussion about long-term anticoagulation for primary cerebrovascular accident prophylaxis. OTHERS: Continue his home atorvastatin for hyperlipidemia; donepezil for cognitive impairment; mirtazapine for insomnia. I am holding his sertraline considering he is having nausea and vomiting and he is hyponatremic at the moment. DISPOSITION: Considering his hemoptysis or hematemesis episode, my plan is to transfer him to [facility] under close monitoring. Plan of care discussed with the patient and his son at bedside. Their questions have been satisfactorily answered. cc: Blake Loyd MD MTDBarbara
[2019-05-23] MEDS: PROTONIX IV SCH (20:49)
[2019-05-23] MEDS ORDERED: ZOLOFT PO SCH (21:00)
--- NOTE | 2019-05-23 21:40 | Diag Imaging Result Doc PS360 ---
CT ANGIOGRM PULMONARY ARTERIES - 05/23/2019 INDICATION: Rule out pulmonary embolism TECHNIQUE: Axial CT images were obtained after administering intravenous contrast. Coronal MIP images were generated. COMPARISON: Prior chest x-rays FINDINGS: There is no pulmonary embolism. There is significant, diffuse mediastinal lymphadenopathy. This involves both galo as well. There is an ill-defined pulmonary mass in the posterior left costophrenic angle. This is adjacent to the pleural surface. This measures 2.5 x 3.5 cm. There is severe COPD. There is dependent atelectasis bilaterally. There is moderate cardiomegaly. There is severe triple-vessel calcified coronary artery disease. Upper abdominal images are unremarkable. There are moderate degenerative changes of the spine. No acute or suspicious bony lesion. IMPRESSION: 1. Negative for pulmonary embolus. 2. Suspicious left lower lobe pulmonary mass. 3. Severe mediastinal lymphadenopathy. 4. Cardiomegaly. 5. Severe COPD. This exam was performed using automated exposure control, adjustment of mA or kV according to patient size, and/or use of iterative reconstruction technique Electronically signed by Vincent Maldonado 05/23/2019 9:38 PM
[2019-05-23] MEDS ORDERED: PNEUMOVAX 23 IM ONE (22:32)
[2019-05-23] MEDS ORDERED: FLU VACCINE IM ONE (22:33)
[2019-05-24] MEDS: NS 1,000 ML IV SCH ×4 (01:25→20:00)
[2019-05-24 06:16] LABS: INR 1.41; PROTIME 17.5 Seconds (11.0-16.0)
[2019-05-24 06:50] LABS: AGAP 11; BUN 12 mg/dL (8-22); CALCIUM 8.7 mg/dL (8.8-10.2); CHLORIDE 100 mmol/L (98-107); COSMO 266; CREATININE 1.1 mg/dL (0.7-1.2); ESTIMATED GFR > 60; GLUCOSE 96 mg/dL (70-104); MAGNESIUM 1.8 mg/dL (1.5-2.7); POTASSIUM 4.7 mmol/L (3.5-5.1); SODIUM 133 mmol/L (136-145); TCO2 22 mmol/L (25-35)
[2019-05-24] MEDS ORDERED: PRILOSEC PO SCH (09:00)
[2019-05-24] MEDS ORDERED: ASPIRIN EC PO SCH (09:00)
[2019-05-24] MEDS: LIPITOR PO SCH (09:25)
[2019-05-24] MEDS: LANOXIN PO SCH (09:25)
[2019-05-24] MEDS: ARICEPT PO SCH (09:26)
[2019-05-24] MEDS: SODIUM CHLORIDE 0.9% INJ SCH ×2 (09:26→20:00)
[2019-05-24] MEDS: REMERON PO SCH (09:26)
[2019-05-24] MEDS: PROTONIX IV SCH ×2 (09:26→20:00)
[2019-05-24] MEDS ORDERED: NS NEB INH SCH (09:45)
[2019-05-24] MEDS ORDERED: ATIVAN IV PRN (10:14)
--- NOTE | 2019-05-24 13:03 | PROVIDER PROGRESS NOTE ---
Progress Note Pulmonary additional note: Discussed with Dr. Schaeffer from radiology and will order CT biopsy.
--- NOTE | 2019-05-24 13:23 | HEMO/ONC CONSULTATION ---
DATE: 05/24/2019 REASON FOR CONSULTATION: Lung mass. HISTORY OF PRESENT ILLNESS: Mr. Millan is a 78-year-old, male who has presented to the ER with complaints of weakness, decreased appetite, and overall not feeling well. The patient states that he was also admitted approximately 2 weeks ago for similar symptoms including shortness of breath and dizzy spells. Since being discharged home on May 12, the patient states he has continued to not feel well. In the ER, the patient's O2 saturation was 88% on room air. He denies any chest pain, palpitations, fevers, chills, falls, or abdominal pain. PAST MEDICAL HISTORY: Atrial fibrillation, hypertension, dyslipidemia, stress and depression. PAST SURGICAL HISTORY: Cardioversion for atrial fibrillation and nasal surgery. SOCIAL HISTORY: Former smoker, 2 pack a day, quit 10 years ago. Denies any alcohol or illicit drug use. ALLERGIES: No known drug allergies. HOME MEDICATIONS: Zoloft, digoxin, aspirin, atorvastatin, donepezil, and Remeron. VITAL SIGNS: Temperature 97.3 degrees, pulse rate 84, respiratory rate 12, blood pressure 110/63, O2 saturation 98% on nasal cannula at 2 L, 0/10 pain. REVIEW OF SYSTEMS: Pertinent positives are noted in the HPI. All other review of systems are negative. PHYSICAL EXAMINATION: General: This is an elderly-appearing male in no acute distress. HEENT: Sclerae are anicteric. PERRLA. Oral mucosa is normal. Cardiovascular: Normal S1 and S2. Regular rate and rhythm. No murmurs, gallops, or rubs appreciated. Respiratory: Lung sounds are clear with some inspiratory crackles in the lower left lung. Normal respiratory effort. Gastrointestinal: Abdomen is soft, nontender, nondistended. Bowel sounds are present. Neurological: The patient is awake, alert, and oriented. No focal motor deficits noted. Extremities: No edema noted. Skin: Warm, dry, and intact. No ecchymosis, petechiae, or rashes noted. LABORATORY: WBCs 11.08, hemoglobin 14.3, hematocrit 41.8, platelet count 233,000. Sodium 133, calcium 8.7, alkaline phosphatase 166, creatinine 1.1. RADIOLOGY: Head CT: No acute process. Chest x-ray: Mild cardiomegaly. No pleural effusions. Lungs are hyperexpanded. Pulmonary arteriogram: Negative for pulmonary embolus. Suspicious for left lower lobe pulmonary mass. Severe mediastinal lymphadenopathy. Cardiomegaly. Severe COPD. ASSESSMENT AND PLAN: 1. Left lower lobe lung mass with mediastinal lymphadenopathy: We will check CT scan for staging. Will evaluate CEA, LDH ,and ESR. Proceed with biopsy for tissue diagnosis and Dr. Chris to evaluate. Will consider an outpatient PET scan. Continue to treat the patient with medical management. We will continue to follow along. 2. DVT prophylaxis: I added SCD's and lovenox sq daily for prophylaxis. 3. Hyponatremia: Monitor. 4. History of A. Fib Dictated by LULU Roblero for Hari Clemons MD cc: Hari Clemons MD [facility]
--- NOTE | 2019-05-24 13:37 | Diag Imaging Result Doc PS360 ---
CT ABD/PELVIS W/ORAL CONT ONLY - 05/24/2019 INDICATION: abdominal pain/nausea COMPARISON: Chest CT 05/23/2019 FINDINGS: There is some excreted contrast in the renal collecting systems and urinary bladder. There is also excreted contrast in the gallbladder and biliary collecting system. Otherwise abdominal organs are all normal. No adenopathy or mass. Urinary bladder, prostate, and rectum are normal. There is severe calcified vascular disease of the abdominal aorta, pelvic, and femoral arteries diffusely. No bowel obstruction or inflammation. Normal appendix. Oral contrast was administered. There is abnormal bony mineralization of the right hemipelvis, sacrum, L4 and L5. These demonstrate cortical and trabecular thickening. No fractures or focal bony erosions. IMPRESSION: 1. Abnormal mineralization of the right hemipelvis, sacrum, L4 and L5. 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 Other possibilities include lymphoma or metastases. 2. Otherwise no acute process. This exam was performed using automated exposure control, adjustment of mA or kV according to patient size, and/or use of iterative reconstruction technique Electronically signed by Vincent Maldonado 05/24/2019 1:35 PM
--- NOTE | 2019-05-24 14:23 | CONSULTATION ---
DATE OF CONSULTATION: 05/24/2019 REQUESTING PROVIDER: Dr. Jaida Arechiga. REASON FOR CONSULTATION: Possible lung cancer and lymphadenopathy. HISTORY OF PRESENT ILLNESS: This is a 78-year-old male with a past medical history of cognitive impairment, anxiety, atrial fibrillation, essential hypertension, and dyslipidemia. He apparently has been admitted from 05/10/2019 to 05/12/2019 with dizziness secondary to dehydration. He came back yesterday morning with same complaints of dizziness and weakness. Per H&P, he also has an episode of coughing spell with hemoptysis. Initial labs revealed hyponatremia and hypochloremia. Chest CT showed left lower lobe pulmonary mass with severe mediastinal lymphadenopathy. He has been admitted to the [facility] for further evaluation and management. The patient currently is lying in bed with his eyes closed. He is arousable, but very lethargic and has difficulty staying awake to answer my questions or follow simple commands. He does complain of headache when he was waken up. He has some dry cough and snoring during my examination. He is on Protonix drip at this time. The nurse reports that the patient just received Ativan for agitation. There is no family at the bedside. All other information is collected from the E-chart. PAST MEDICAL HISTORY: 1. Cognitive impairment. 2. Anxiety. 3. Atrial fibrillation. 4. Essential hypertension. 5. Dyslipidemia. PAST SURGICAL HISTORY: Status post cardioversion, status post nose surgery. SOCIAL HISTORY: Per history and physical, patient lives at home with his grandson. He used to smoke 2 packs a day and quit over 10 years ago. He has no alcohol or illicit drug use. FAMILY HISTORY: Positive for hypertension. ALLERGIES: No known drug allergies. REVIEW OF SYSTEMS: Unable to be obtained. PHYSICAL EXAMINATION: Vital Signs: Temperature 97.5 degrees, blood pressure 107/76, pulse 78, respiratory rate 14, oxygen saturation 98% on nasal cannula at 2. General: Chronically ill- appearing, lying in bed with no acute distress noted. He is very lethargic. He is arousable but has difficulty staying awake to answer my questions or follow any commands. HEENT: Atraumatic, normocephalic. Trachea midline. Mucosa pink and moist. Respiratory: Even and unlabored. Symmetrical excursion. Auscultation revealed left lower lobe only inspiratory crackles. Cardiovascular: Regular rate and rhythm. Gastrointestinal: Soft, nontender, nondistended. Normoactive bowel sounds in all 4 quadrants. Extremities: No pedal edema. No cyanosis. No clubbing. Dorsalis pedis 1+ bilaterally. Neurologic: Lethargic, arousable but has difficulty to stay awake to answer my questions or follow simple commands. Speech fluent. LABORATORY DATA: White blood cell 11.08, hemoglobin 14.3, hematocrit 41.8, platelet 233,000. Sodium 133, potassium 4.7, chloride 100, carbon dioxide 22, BUN 12, creatinine 1.1, glucose 96. IMAGING DATA: CT angiogram pulmonary arteries on 05/23/2019 revealed negative for pulmonary embolus, suspicious left lower lobe pulmonary mass measuring 2.5 x 3.5 cm, severe mediastinal lymphadenopathy, cardiomegaly and severe COPD. ASSESSMENT: This is a 78-year-old male with a medical history of cognitive impairment, anxiety, atrial fibrillation, essential hypertension, and dyslipidemia. He has been admitted to our facility since yesterday morning with hemoptysis versus hematemesis, hyponatremia, hypochloremia secondary to clinical volume depletion. 1. Acute respiratory distress, currently on nasal cannula at 2 L and apparent the patient tolerates very well. 2. Severe chronic obstructive pulmonary disease. No acute exacerbation noted. 3. Suspicious left lower lobe pulmonary mass measuring 2.5 x 3.5 cm with severe mediastinal lymphadenopathy. 4. Hemoptysis versus hematemesis. 5. Rule out pulmonary embolus. PLAN: 1. Continue supplemental oxygen as needed. 2. Dr. Chris already reviewed the imaging and discussed with Dr. Schaeffer from Radiology and ordered CT biopsy. I tried to tell patient about our plan, but patient is too lethargic. There is no family at the bedside. 3. Continue breathing treatments and GI prophylaxis. 4. Follow up with CBC, and BMP. 5. Dr. Clemons is on board. 6. Further recommendations pending hospital course. Thank you for the courtesy of this consult. Dictated by LULU Dorantes for Deepti Chris MD cc: LULU Dorantes MD [facility]
[2019-05-24] MEDS: XOPENEX NEB INH SCH ×3 (15:52→21:23)
[2019-05-24 16:10] LABS: ALLEN TEST YES; BE -1.8 mmoll (-3.0-3.0); BLOOD TYPE ARTERIAL; HCO3-(ACT) 23.5 mmoll (20.0-26.0); METHB 0.9 % (0.0-1.5); MODALITY CANNULA; O2(CT) 16.5 mL/dL (15.0-23.0); O2HB 94.9 % (95.0-99.0); PCO2(98.6) 34 mmHg (35-45); PO2(98.6) 76 mmHg (60-100); SAMPLE BLOOD; SAO2 97.8 % (95.0-100.0); THB 12.3 g/dL (11.5-17.4); pH(98.6) 7.42 (7.35-7.45)
[2019-05-24] MEDS ORDERED: LOVENOX SUBQ SCH (16:45)
[2019-05-24 19:33] LABS: BASO# 0.03 X1000 (0.0-0.2); BASO% 0.4 % (0.0-0.8); EOS# 0.24 X1000 (0.0-0.7); HEMATOCRIT 36.9 % (42.0-52.0); HEMOGLOBIN 12.3 g/dL (14.0-18.0); IMM GRAN# 0.02 X1000 (0.0-0.04); IMM GRAN% 0.3 % (0.0-0.5); LYMPH% 10.2 % (20.5-51.1); MCH 29.7 PG (27-31); MCHC 33.3 g/dL (33-37); MCV 89.1 FL (81-99); MONO# 0.71 X1000 (0.11-0.59); MPV 9.8 FL (7.4-10.4); NEUT# 6.07 X1000 (1.4-6.5); NEUT% 77.1 % (42.2-75.2); PLT 203 X1000 (130-400); RBC 4.14 XMIL (4.7-6.1); WBC 7.87 X1000 (4.8-10.8)
--- NOTE | 2019-05-24 20:04 | PROGRESS NOTE ---
DATE: 05/24/2019 SUBJECTIVE: The patient is sitting up in bed, resting comfortably. He states that he feels a little bit better today. No acute events noted overnight. OBJECTIVE: Vital Signs: Temperature 97.9 degrees, blood pressure 114/76, heart rate 82, respirations 24, O2 saturation is 94% on 2 L nasal cannula. General: This is a chronically ill- appearing, elderly male, lying in bed in no acute distress. Heart: S1, S2 normal. Regular rate and rhythm. Lungs: Equal air entry bilaterally. No wheezing. No rales. Abdomen: Positive bowel sounds. Soft, nontender, nondistended. Extremities: No edema. No cyanosis. Neurologic: The patient is alert and oriented x4. LABORATORY DATA: Sodium 133, potassium 4.7, BUN 12, creatinine 1.1, glucose 96, magnesium 1.8. ASSESSMENT AND PLAN: 1. Left lower lobe lung mass with hemoptysis. The patient has been seen by the barrel filler and a CT guided lung biopsy is planned for tomorrow. We will also consult with the oncologist. 2. Severe mediastinal lymphadenopathy. Aware. Again, the patient is scheduled for a lung biopsy tomorrow. 3. Severe chronic obstructive pulmonary disease. Continue with supplemental oxygen and bronchodilator therapy. 4. Hyponatremia. Slowly improving. 5. Paroxysmal atrial fibrillation. The patient is currently rate controlled. Continue on digoxin. 6. Dementia. Continue on Aricept. cc: Jaida Arechiga MD [facility]
[2019-05-25] MEDS: NS 1,000 ML IV SCH (00:37)
[2019-05-25 01:05] LABS: BASO# 0.04 X1000 (0.0-0.2); BASO% 0.6 % (0.0-0.8); EOS% 2.8 % (0.0-10.0); HEMOGLOBIN 12.1 g/dL (14.0-18.0); IMM GRAN# 0.03 X1000 (0.0-0.04); IMM GRAN% 0.4 % (0.0-0.5); LYMPH% 12.4 % (20.5-51.1); MCHC 33.6 g/dL (33-37); MCV 89.1 FL (81-99); MONO# 0.71 X1000 (0.11-0.59); MONO% 9.8 % (1.7-9.3); MPV 9.6 FL (7.4-10.4); NEUT# 5.38 X1000 (1.4-6.5); PLT 212 X1000 (130-400); RBC 4.04 XMIL (4.7-6.1); RDW 14.1 % (11.5-14.5); WBC 7.26 X1000 (4.8-10.8)
[2019-05-25] MEDS: XOPENEX NEB INH SCH ×4 (03:41→21:43)
[2019-05-25 06:18] LABS: BASO# 0.04 X1000 (0.0-0.2); BASO% 0.5 % (0.0-0.8); EOS# 0.24 X1000 (0.0-0.7); EOS% 3.2 % (0.0-10.0); HEMATOCRIT 36.2 % (42.0-52.0); IMM GRAN# 0.03 X1000 (0.0-0.04); IMM GRAN% 0.4 % (0.0-0.5); LYMPH# 1.05 X1000 (1.2-3.4); MCH 29.7 PG (27-31); MCHC 33.1 g/dL (33-37); MCV 89.6 FL (81-99); MONO# 0.88 X1000 (0.11-0.59); MONO% 11.7 % (1.7-9.3); MPV 9.8 FL (7.4-10.4); NEUT# 5.26 X1000 (1.4-6.5); NEUT% 70.2 % (42.2-75.2); PLT 204 X1000 (130-400); RBC 4.04 XMIL (4.7-6.1); RDW 14.1 % (11.5-14.5)
[2019-05-25 06:42] LABS: CALCIUM 9.1 mg/dL (8.8-10.2); CREATININE 1.2 mg/dL (0.7-1.2); POTASSIUM 4.1 mmol/L (3.5-5.1)
[2019-05-25 08:11] LABS: INR 1.52; PROTIME 18.6 Seconds (11.0-16.0)
--- NOTE | 2019-05-25 08:39 | PROVIDER PROGRESS NOTE ---
Progress Note Pulmonary additional note: Awaiting CT biopsy. Full progress note to follow. Evaluation time 630-7 am.
--- NOTE | 2019-05-25 09:44 | Diag Imaging Result Doc PS360 ---
EXAM: CHEST-2 VIEWS 05/25/2019 HISTORY: POST LUNG BX TECHNIQUE: Inspiratory expiratory upright AP COMMENT: There is a very small apical pneumothorax on the left. This is only visible on the expiratory view. Otherwise the appearance of the chest has not changed appreciably since 05/23/2019. IMPRESSION: Very small left pneumothorax. Further evaluation is to be performed in two hours. Electronically signed by Kristopher Nieto 05/25/2019 9:42 AM
--- NOTE | 2019-05-25 09:47 | Diag Imaging Result Doc PS360 ---
EXAM: CT GUIDED BIOPSY LUNG 05/25/2019 HISTORY: Peripheral Lung mass TECHNIQUE: CT-guided percutaneous biopsy of the left lower lobe. COMMENT: The risks and benefits of the procedure including the possibility of pneumothorax, bleeding, infection, or reaction to lidocaine were discussed with the patient and his family member. He agreed to the procedure. Following sterile preparation of the skin posteriorly and administration of 1% lidocaine to the skin and deeper soft tissues, the lesion was biopsied 3 times with a Tealeafno 20-gauge coaxial biopsy needle. The patient tolerated the procedure well. There is a tiny pneumothorax on the left following the biopsy. IMPRESSION: Successful CT-guided percutaneous biopsy of the left lower lobe. Electronically signed by Kristopher Nieto 05/25/2019 9:44 AM
[2019-05-25] MEDS: PROTONIX IV SCH ×2 (10:07→20:48)
[2019-05-25] MEDS: LANOXIN PO SCH (10:07)
[2019-05-25] MEDS: LIPITOR PO SCH (10:07)
[2019-05-25] MEDS: ARICEPT PO SCH (10:08)
[2019-05-25] MEDS: REMERON PO SCH (10:08)
[2019-05-25] MEDS: SODIUM CHLORIDE 0.9% INJ SCH (10:08)
--- NOTE | 2019-05-25 13:16 | Diag Imaging Result Doc PS360 ---
EXAM: CHEST-2 VIEWS 05/25/2019 HISTORY: post CT biposy TECHNIQUE: Inspiratory expiratory upright portable AP at 1257. COMMENT: The small apical pneumothorax on the left has not changed significantly since the previous series at 0930. The appearance the chest is otherwise unchanged since the previous exam. IMPRESSION: Stable tiny left apical pneumothorax. Further evaluation will be performed in two hours. Electronically signed by Kristopher Nieto 05/25/2019 1:13 PM
[2019-05-25 13:33] LABS: BASO# 0.02 X1000 (0.0-0.2); BASO% 0.3 % (0.0-0.8); EOS% 1.3 % (0.0-10.0); HEMATOCRIT 39.6 % (42.0-52.0); HEMOGLOBIN 13.2 g/dL (14.0-18.0); IMM GRAN# 0.02 X1000 (0.0-0.04); IMM GRAN% 0.3 % (0.0-0.5); LYMPH# 0.63 X1000 (1.2-3.4); MCH 29.7 PG (27-31); MCHC 33.3 g/dL (33-37); MONO# 0.82 X1000 (0.11-0.59); MONO% 10.4 % (1.7-9.3); MPV 9.5 FL (7.4-10.4); NEUT# 6.33 X1000 (1.4-6.5); NEUT% 79.7 % (42.2-75.2); PLT 223 X1000 (130-400); RBC 4.45 XMIL (4.7-6.1); RDW 14.3 % (11.5-14.5); WBC 7.92 X1000 (4.8-10.8)
--- NOTE | 2019-05-25 14:38 | Diag Imaging Result Doc PS360 ---
EXAM: CHEST-2 VIEWS 05/25/2019 HISTORY: post biopsy TECHNIQUE: AP upright inspiratory expiratory chest COMMENT: The small left pneumothorax which has been demonstrated on previous studies is no longer visible. Otherwise are has been no significant change. IMPRESSION: No evidence of residual pneumothorax. Electronically signed by Kristopher Nieto 05/25/2019 2:36 PM
--- NOTE | 2019-05-25 16:51 | HEMO/ONC PROGRESS NOTE ---
DATE: 05/25/2019 SUBJECTIVE: The patient is doing well today. He is preparing to leave for his CT-guided biopsy this morning. He had no significant events overnight. He is comfortable this morning. OBJECTIVE: Vital Signs: Temperature 98.2 degrees, pulse rate 100, respiratory rate 18, blood pressure 148/82, O2 saturation 97% on 2 L by nasal cannula. He is in 0/10 pain. General: This is an elderly appearing male in no acute distress. Cardiovascular: Normal S1, S2. Heart rate and rhythm regular. HEENT: Sclera is anicteric. PERRLA. Oral mucosa is normal. Respiratory: Lung sounds clear. Inspiratory crackles in the lower left lung. Normal respiratory effort. Gastrointestinal: Abdomen is soft, nontender, nondistended. Bowel sounds are present. Neurological: Awake, alert, and oriented. No focal motor deficits noted. Extremities: No edema noted. Skin: Warm, dry, and intact. LABORATORY: WBC 7.92, hemoglobin 13.2, hematocrit 39.6, platelet count 223,000. ANC 6.33. CEA 2.8. LDH 328. Sedimentation rate 1. RADIOLOGY: Post biopsy chest x-ray shows no evidence of residual pneumothorax. There was initially a small left pneumothorax immediately after the procedure. ASSESSMENT AND PLAN: 1. Left lower lobe lung mass with mediastinal lymphadenopathy. Follow up on CT abdomen and pelvis. We are waiting for tissue biopsy from the CT-guided lung biopsy today. The patient tolerated the procedure well. He may need an outpatient PET scan. We will continue to monitor the patient. 2. Deep venous thrombosis prophylaxis. Continue the patient on SCDs and Lovenox daily. 3. Hyponatremia. This has resolved. 4. History of atrial fibrillation. Dictated by LULU Roblero for Hari Clemons MD cc: Hari Clemons MD [facility]
--- NOTE | 2019-05-25 19:35 | PROGRESS NOTE ---
DATE: 05/25/2019 SUBJECTIVE: The patient is resting comfortably in bed. He just returned from his CT-guided lung biopsy and he is eating. OBJECTIVE: Vital Signs: Temperature 98.2 degrees, blood pressure 148/82, heart rate 100, respirations 18, O2 saturation 97% on 2 L nasal cannula. General: This is a chronically ill- appearing elderly male, sitting up in bed in no acute distress. Heart: S1, S2, normal. Tachycardic. Lungs: Equal air entry bilaterally. No wheezing. No rales. Abdomen: Positive bowel sounds. Soft, nontender, nondistended. Extremities: No edema, no cyanosis. Neurologic: The patient is alert and oriented x3. LABORATORY DATA: White blood cell count 7.9, hemoglobin 13, hematocrit 39, platelets 223,000. INR 1.5. Sodium 137, potassium 4.1, chloride 103, CO2 is 21, BUN 12, creatinine 1.2, glucose 89. ASSESSMENT AND PLAN: 1. Left lower lobe lung mass status post CT-guided lung biopsy. We will await the pathology report. Oncology and Pulmonary are following. 2. Severe mediastinal adenopathy. Aware. 3. Severe chronic obstructive pulmonary disease. Continue with supplemental oxygen and bronchodilator therapy. 4. Paroxysmal atrial fibrillation. Continue on digoxin. 5. Mild dementia. Continue on Aricept. 6. We will consult Physical Therapy. 7. Deep vein thrombosis prophylaxis. We will restart the Lovenox. cc: Jaida Arechiga MD [facility]
[2019-05-25] MEDS: LOVENOX SUBQ SCH (20:51)
[2019-05-26] MEDS: XOPENEX NEB INH SCH ×4 (03:21→21:35)
[2019-05-26 06:11] LABS: HEMOGLOBIN 12.3 g/dL (14.0-18.0); MCH 30.5 PG (27-31); MCHC 34.2 g/dL (33-37); MCV 89.3 FL (81-99); MPV 9.8 FL (7.4-10.4); RBC 4.03 XMIL (4.7-6.1); RDW 14.4 % (11.5-14.5); WBC 8.17 X1000 (4.8-10.8)
[2019-05-26 06:31] LABS: AGAP 13; BUN 16 mg/dL (8-22); CALCIUM 8.7 mg/dL (8.8-10.2); CHLORIDE 102 mmol/L (98-107); COSMO 276; CREATININE 1.1 mg/dL (0.7-1.2); ESTIMATED GFR > 60; GLUCOSE 108 mg/dL (70-104); POTASSIUM 4.1 mmol/L (3.5-5.1); SODIUM 137 mmol/L (136-145); TCO2 22 mmol/L (25-35)
--- NOTE | 2019-05-26 06:45 | Diag Imaging Result Doc PS360 ---
CHEST-1 VIEW - 05/26/2019 INDICATION: dyspnea/lung mass COMPARISON: 05/25/2019 FINDINGS: There is no change from prior. No pneumothorax. No new infiltrates. IMPRESSION: No change from prior. Electronically signed by Vincent Maldonado 05/26/2019 6:43 AM
[2019-05-26] MEDS: PROTONIX IV SCH ×2 (08:39→20:38)
[2019-05-26] MEDS: LIPITOR PO SCH (08:40)
[2019-05-26] MEDS: REMERON PO SCH (08:40)
[2019-05-26] MEDS: LANOXIN PO SCH (08:40)
[2019-05-26] MEDS: ARICEPT PO SCH (08:40)
[2019-05-26] MEDS: SODIUM CHLORIDE 0.9% INJ SCH (08:40)
--- NOTE | 2019-05-26 13:19 | HEMO/ONC PROGRESS NOTE ---
DATE: 05/26/2019 SUBJECTIVE: The patient is feeling very well this morning. He is sitting up in bed eating his breakfast. He denies having any pain or problem at all this morning. He states his appetite is very good. He is eager to get out of bed today. He remained comfortable and should start with physical therapy today. OBJECTIVE: Vital Signs: Temperature 97.8 degrees, pulse rate 99, respiratory rate 16, blood pressure 117/60, and O2 saturation 94% on nasal cannula at 5 L. He is in 0/10 pain. General: This is a chronically ill-appearing elderly male in no acute distress. HEENT: Sclera is anicteric. PERRLA. Oral mucosa is normal. Cardiovascular: Normal S1, S2. Heart rate and rhythm tachycardic. Respiratory: Lung sounds are clear today. Normal respiratory effort. Gastrointestinal: Abdomen is soft and nontender. Positive bowel sounds. Extremities: No lower extremity edema noted. Neurological: Awake, alert, and oriented x3. No focal motor deficits noted. LABORATORY: WBCs 8.17, hemoglobin 12.3, hematocrit 36, and platelet count 200,000. RADIOLOGY: This morning's chest x-ray shows no change from prior x-ray, and is negative for pneumothorax. No new infiltrates. ASSESSMENT AND PLAN: This was discussed with Dr. Clemons. Dr Clemons had a lengthy discussion with his son. 1. Left lower lobe lung mass with mediastinal lymphadenopathy. We continue to await on tissue biopsy from the CT-guided lung biopsy done yesterday. The patient continues to feel well. We will obtain a bone scan. Get flower OOB. PT consult. 2. Deep vein thrombosis prophylaxis. Continue the patient on SCD's and Lovenox daily. 3. History of atrial fibrillation. 4. Hypoxia: Unable to wean off oxygen. May need to go home with O2. Dictated by LULU Roblero for Hari Clemons MD cc: Hari Clemons MD [facility]ITAL[facility]bara
--- NOTE | 2019-05-26 15:14 | PROGRESS NOTE ---
DATE: 05/26/2019 SUBJECTIVE: The patient is sitting up, eating breakfast. He states that he does not have any complaints. However, he is currently on 5 L of supplemental oxygen. OBJECTIVE: Vital Signs: Temperature 97.8 degrees, blood pressure 117/60, heart rate 99, respirations 16, O2 saturation 94% on 5 L nasal cannula. Intake 400, output 1 L. General: This is a elderly male sitting up in bed in no acute distress. Heart: S1, S2 normal. Regular rate and rhythm. Lungs: Equal air entry bilaterally. No wheezing. No rales. No rhonchi. Abdomen: Positive bowel sounds. Soft, nontender, nondistended. Extremities: No edema, no cyanosis. Neurologic: The patient is alert and oriented x3. LABS: Sodium 137, potassium 4.1, chloride 102, CO2 22, BUN 16, creatinine 1.1, glucose 108, calcium 8.7, hemoglobin 12, hematocrit 36. Chest x-ray shows no change from prior. ASSESSMENT AND PLAN: 1. Left lower lobe lung mass status post CT-guided lung biopsy. The pathology results are currently pending. Pulmonary and Oncology are following. 2. Severe mediastinal lymphadenopathy. Aware. 3. Severe chronic obstructive pulmonary disease. Continue with supplemental oxygen and bronchodilator therapy. 4. Mild dementia. Continue on Aricept. 5. Paroxysmal atrial fibrillation. Continue on digoxin. 6. Continue with physical therapy. 7. Disposition. The patient may likely require inpatient rehab placement. Technical Producer has been consulted to assist with placement. cc: Jaida Arechiga MD
[2019-05-26 15:18] LABS: URINE SOURCE CLEAN CATCH
[2019-05-26 15:23] LABS: BILIRUBIN URINE NEGATIVE (NEGATIVE); BLOOD URINE NEGATIVE (NEGATIVE); COLOR STRAW; GLUCOSE URINE NEGATIVE (NEGATIVE); KETONE URINE NEGATIVE (NEGATIVE); LEUKOCYTES URINE NEGATIVE (NEGATIVE); NITRITE URINE NEGATIVE (NEGATIVE); PH URINE 6.5; PROTEIN URINE NEGATIVE (NEGATIVE); SP GRAVITY URINE 1.007; TURBIDITY URINE CLEAR (CLEAR); UROBILINOGEN URINE NORMAL (NORMAL)
[2019-05-26 15:24] LABS: UR EPITHELIAL CELLS <10 /HPF (<10); URINE BACTERIA NEGATIVE /HPF; URINE RBC <10 /HPF (<10); URINE WBC <10 /HPF (<10)
[2019-05-26] MEDS: LOVENOX SUBQ SCH (20:38)
[2019-05-27] MEDS: XOPENEX NEB INH SCH ×4 (03:10→21:15)
[2019-05-27] MEDS: ARICEPT PO SCH (08:54)
[2019-05-27] MEDS: PROTONIX IV SCH ×2 (08:54→21:02)
[2019-05-27] MEDS: LIPITOR PO SCH (08:55)
[2019-05-27] MEDS: REMERON PO SCH (08:55)
[2019-05-27] MEDS: LANOXIN PO SCH (08:55)
--- NOTE | 2019-05-27 12:49 | HEMO/ONC PROGRESS NOTE ---
DATE: 05/27/2019 SUBJECTIVE: The patient is lying in bed, still resting this morning. He states he is not ready for his breakfast at this time. However, he does feel good this morning. His son states that he is more awake and alert at this time. The patient did attempt to get out of bed with physical therapy yesterday and he did rather well, although he has developed some weakness from being in bed a few days. He should continue to do a little bit more with physical therapy today. Dr. Clemons had a long discussion with his son regarding the patient's prognosis. OBJECTIVE: Vital Signs: Temperature 98.3 degrees, pulse rate 89, respiratory rate 17, blood pressure 113/72, O2 saturation 93% on nasal cannula at 3 L in 0/10 pain. General: This is an ill-appearing elderly male in no acute distress. HEENT: Sclerae is anicteric. PERRLA. Oral mucosa is normal. Cardiovascular: Normal S1, S2. Heart rate and rhythm is normal. Respiratory: Lung sounds are clear to auscultation. Normal respiratory effort. Gastrointestinal: Abdomen is soft and nontender. Positive bowel sounds. Extremities: No lower extremity edema noted. Neurological: Awake, alert, and oriented. No focal motor deficits noted. LABORATORY: WBC is 8.17, hemoglobin 12.3, hematocrit 36.0, platelet count 201,000. ASSESSMENT AND PLAN: This plan of care was discussed with Dr. Clemons. Dr. Clemons had a lengthy discussion again this morning with his son and the patient. 1. Left lower lobe lung mass with mediastinal lymphadenopathy. We continue to await the tissue biopsy. However, from our standpoint, there is no need for the patient to remain hospitalized while we wait on that. In the meantime, we have ordered a bone scan for the patient. We are continuing to wait on those results that should be done today. OK with rehab if patient and family choses. 2. Continue the patient with physical therapy. He needs to be out of bed. He should eat his meals out of bed. Please call us if we are needed over the weekend. 3. Deep vein thrombosis prophylaxis. Continue the patient on sequential compression devices and Lovenox daily. 4. History of atrial fibrillation. 5. Hypoxia. Marjorie has underlying COPD. Do not think it is from Lung cancer. Unable to wean the patient off oxygen at this time. He most likely will need to go home with oxygen. Dictated by LULU Roblero for Hari Clemons MD cc: Hari Clemons MD [facility]
--- NOTE | 2019-05-27 13:28 | Diag Imaging Result Doc PS360 ---
EXAM: BONE SCAN, TOTAL BODY INDICATION: r/o metastatic disease TECHNIQUE: 27.8 mCi of technetium 99 MDP was administered intravenously and images of the whole body were obtained in usual fashion after administration. Magnified images of the pelvis were obtained as well. COMPARISON: CT abdomen and pelvis dated 05/24/2019. No prior nuclear medicine bone scan is available for comparison. FINDINGS: There is increased radiotracer uptake involving the right ileum, especially in the region adjacent to the SI joint. There is milder increased uptake involving the sacrum, L5, and L4. This corresponds to the abnormal mineralization seen on the recent CT. On CT, the pattern is most suggestive of Paget's disease, which can certainly be associated with increased uptake. However, metastatic disease remains in the differential. There is trace degenerative uptake involving both the, both knees, and the right AC joint. There is minimal increased uptake involving the mid cervical spine posteriorly on the left that probably represents facet arthropathy. No other suspicious areas of increased uptake are identified. There is normal soft tissue uptake and normal excretion of radiotracer by the system. IMPRESSION: Increased uptake associated with the right hemipelvis and, to a lesser degree the sacrum, L4, and L5 corresponding to the abnormal mineralization seen on the recent CT. The top differential consideration is still Paget's disease given the pattern on CT. However, metastatic disease still cannot completely be excluded. Electronically signed by Angel Major 05/27/2019 1:26 PM
--- NOTE | 2019-05-27 16:19 | PROGRESS NOTE ---
DATE: 05/27/2019 SUBJECTIVE: The patient is resting comfortably in bed. He has no complaints. OBJECTIVE: Vital Signs: Temperature 98.2 degrees, blood pressure 125/65, heart rate 93, respirations 26, O2 saturations 96% on 3 L nasal cannula, intake 510, output 2.3 L. General: This is a chronically ill-appearing elderly male lying in bed in no acute distress. Heart: S1, S2 normal. Regular rate and rhythm. Lungs: Equal air entry bilaterally. No wheezing, no rales, no rhonchi. Abdomen: Positive bowel sounds. Soft, nontender, nondistended. Extremities: No edema, no cyanosis, no calf tenderness. Neuro: The patient is alert and oriented x3. LABS: Hemoglobin 12, hematocrit 36, platelets 201,000. Sodium 137, potassium 4.1, chloride 102, CO2 22, BUN 16, creatinine 1.1, glucose 108. ASSESSMENT AND PLAN: 1. Acute hypoxemic respiratory failure. The patient will likely need home oxygen. Will consult with Applications Analyst to arrange for home oxygen. A home O2 evaluation has been requested. 2. Newly diagnosed lung adenocarcinoma. The patient will follow up with after he is discharged for further staging and treatment discussion. 3. Severe mediastinal lymphadenopathy. Aware. 4. Severe chronic obstructive pulmonary disease. Continue with supplemental oxygen and bronchodilator therapy. 5. Mild dementia. Continue on Aricept. 6. Paroxysmal atrial fibrillation. Continue on digoxin. 7. Continue with physical therapy. 8. Disposition. Applications Analyst has been consulted for inpatient rehab placement. The patient's son is requesting placement. cc: Jaida Arechiga MD [facility]
[2019-05-27] MEDS: LOVENOX SUBQ SCH (21:02)
[2019-05-28] MEDS: XOPENEX NEB INH SCH ×4 (03:10→21:20)
[2019-05-28] MEDS: LANOXIN PO SCH (08:34)
[2019-05-28] MEDS: REMERON PO SCH (08:34)
[2019-05-28] MEDS: SODIUM CHLORIDE 0.9% INJ SCH (08:34)
[2019-05-28] MEDS: LIPITOR PO SCH (08:34)
[2019-05-28] MEDS: ARICEPT PO SCH (08:34)
[2019-05-28] MEDS: PROTONIX IV SCH (08:34)
[2019-05-28] MEDS: XANAX PO PRN (12:01)
--- NOTE | 2019-05-28 17:03 | PROGRESS NOTE ---
DATE: 05/28/2019 INTERVAL HISTORY: No acute events overnight. The patient needed a lot of support while working with Physical therapy, who had recommended rehab. The patient was able to walk 60 feet using a walker, but he needed support. SUBJECTIVE: He denies any new complaints. His son is at bedside. I had an extensive discussion about his medical course. Son states that if I if he would need chemotherapy in the future, then patient would likely not agree to that. I had a discussion about bone findings and the fact that I am awaiting further discussion with the radiologist and oncologist. Subjectively, the patient states he continues to have occasional hemoptysis, though it has decreased in amount. He is denying any chest pain. He gets short of breath on physical exertion. VITALS: Currently temperature 98.3 degrees, pulse 87, respiratory rate 18, blood pressure 127/75, saturating 96% on 2 L nasal cannula. PHYSICAL EXAMINATION: General: Does not appear in any acute distress. HEENT: Oral cavity is moist. Lungs: Air entry bilaterally equal. No wheeze, rhonchi, or crackles. Cardiovascular: S1, S2 normal. No murmur, rub, or gallop. Abdomen: Soft, nontender. Extremity: No lower extremity edema. Neurologic: He is alert. He is oriented to himself and to situation. LABS: Suggestive largely within normal limits of his WBC and platelet count. His electrolytes are also normal. No microbiological data. Biopsy report suggests adenocarcinoma with pulmonary primary. ASSESSMENT AND PLAN: 1. Left lower lobe lung adenocarcinoma. He underwent a CT-guided biopsy on May 25, and his post biopsy small pneumothorax spontaneously resolved. He has marked mediastinal lymphadenopathy and suspicious bone lesions. The patient and his son have not decided about if he would be agreeable to receive treatment for it. Currently, he is hypoxic and needs support for physical activity, so the plan is to possibly send him to rehab. I had a discussion about his right pelvis/lower lumbar vertebral findings of CT scan and bone scan. I am trying to reach out to the radiologist to have a discussion if MRI versus bone biopsy could help tease apart if the bone lesions are from Paget disease or metastatic lesions. I am yet to hear back from the radiologist as of now. 2. Acute hypoxic respiratory failure with longstanding smoking history, which he quit many years ago. Since then, he has been smoking cigars. Continue supplemental oxygen and bronchodilators. 3. Others: Continue Aricept for mild dementia, digoxin for paroxysmal atrial fibrillation. He is not listed to be taking any anticoagulation, and I am holding his aspirin considering ongoing hemoptysis. Continue atorvastatin for hyperlipidemia, Xanax as needed for anxiety, and mirtazapine for insomnia. I will stop his intravenous pantoprazole and change it to oral if needed in the future. DISPOSITION: The patient has been feeling weak, so the plan is to find a good rehab place for him. From there, he and his family will decide about further treatment option for his cancer. They have not been able to make up their minds about if he would like to go for chemotherapy in the near future. I am also awaiting Radiology recommendation about getting MRI versus bone biopsy on Thursday. Plan of care discussed with the patient's son. His questions were answered. cc: Blake Loyd MD
[2019-05-28] MEDS: ZOFRAN IV PRN (19:17)
[2019-05-28] MEDS: LOVENOX SUBQ SCH (20:54)
[2019-05-29] MEDS: XOPENEX NEB INH SCH ×4 (03:24→21:05)
[2019-05-29] MEDS: REMERON PO SCH (09:12)
[2019-05-29] MEDS: LIPITOR PO SCH (09:12)
[2019-05-29] MEDS: LANOXIN PO SCH (09:12)
[2019-05-29] MEDS: ARICEPT PO SCH (09:12)
[2019-05-29] MEDS: XANAX PO PRN (11:46)
--- NOTE | 2019-05-29 11:56 | PROGRESS NOTE ---
DATE: 05/29/2019 SUBJECTIVE: Patient reports feeling fine. Alert and awake. As per nursing staff, no acute issues noted. OBJECTIVE: Vitals: Temperature 97.5 degrees, heart rate 100, respiratory rate 14, blood pressure 115/70, O2 saturation 95% on 2 L nasal cannula. General Examination: This is a chronically ill- looking 78-year-old male, lying in bed, in no acute distress. Cardiovascular: S1, S2 heard. No murmurs, gallops, or rubs. Regular rate and rhythm. Respiratory: Minimal coarse breath sounds noted in both pulmonary bases. Patient is not using any accessory muscles or having work of breathing. Abdomen: Soft. Nontender to palpation. Bowel sounds present. No organomegaly. Extremities: No clubbing, cyanosis, or edema. Peripheral pulses present in both legs. Neurological: Patient is a little bit slow but alert and oriented to place and person. LABORATORY DATA: No labs from the last 3 days. ASSESSMENT AND PLAN: 1. Left lower lobe lung adenocarcinoma. The patient is still thinking with his son about receiving or not treatment for this condition. We have consulted Dr. Clemons from Hematology/Oncology. They think that this patient does not need to be hospitalized in order to be treated for this condition in the case they decide to do that. It is important to remark that he has a right pelvis lower lumbar spots finding in the CT scan and bone scan. We will see if we need to do an MRI versus bone biopsy of those lesions, but first we need to know if the patient will receive active therapy for this cancer or not. We will see what they have to say tomorrow. 2. Acute hypoxemic respiratory failure. Now he is requiring 2 L of oxygen by nasal cannula. He is a longstanding smoker. At this point, we will continue with same management. 3. Mild dementia. We will continue with Aricept. 4. Paroxysmal atrial fibrillation. Heart rate has been stable. We will continue with digoxin for that condition. I do not think this patient needs any anticoagulation. 5. Hyperlipidemia. We will continue with the statin. 6. Anxiety disorder. Continue with Xanax. 7. Disposition. As we mentioned before, the patient is not sure about to do any active treatment for this lung cancer or not. Plan is to send him to rehab facility whenever we have a bed. 8. He is medically stable. cc: Dev Albarado MD MTDD
[2019-05-29] MEDS: LOVENOX SUBQ SCH (20:13)
[2019-05-30] MEDS: XOPENEX NEB INH SCH ×4 (03:30→23:20)
[2019-05-30] MEDS ORDERED: XANAX PO ONE (09:30)
[2019-05-30] MEDS: LANOXIN PO SCH (09:39)
[2019-05-30] MEDS: LIPITOR PO SCH (09:39)
[2019-05-30] MEDS: ARICEPT PO SCH (09:40)
[2019-05-30] MEDS: REMERON PO SCH (10:02)
[2019-05-30] MEDS: ZOFRAN IV PRN (10:02)
--- NOTE | 2019-05-30 10:26 | PROGRESS NOTE ---
DATE: 05/30/2019 SUBJECTIVE: The patient reports feeling fine. He was complaining of some anxiety in the morning, but no other issues noted. OBJECTIVE: Vital Signs: Temperature 98.0 degrees, heart rate 113, respiratory rate 20, blood pressure 107/77, O2 saturation 94% 3 L nasal cannula. General: This is a chronically ill- looking, 78-year-old, male, lying in bed in no acute distress. Cardiovascular: S1, S2 heard. No murmurs, gallops, or rubs. Regular rate and rhythm. Respiratory: Coarse breath sounds noted in both pulmonary bases. The patient is not using any accessory muscles or having work of breathing. Abdomen: Soft, nontender to palpation. Bowel sounds present. No organomegaly. Extremities: No clubbing, cyanosis, or edema. Peripheral pulses present in both legs. Neurological: The patient is a little bit slow, but alert and oriented x3. Moves all 4 extremities. LABORATORY DATA: No labs in the last 3 days, but those have been pretty much within normal limits. ASSESSMENT AND PLAN: 1. Left lower lobe lung adenocarcinoma. Dr. Clemons from Hematology/Oncology is on board. The patient and son are still thinking about further treatment for this condition or not. In any case, the plan currently is to send this patient to rehab facility, and if they decide to proceed with treatment, then will contact Oncology. It is important to remark that there are some lesions noted in the right pelvis and also lower lumbar spine. There are some spots down there that we do not know it we will need to do an MRI or bone biopsy to determine what the lesions are. I think at this point, will need to know if the patient will receive active chemotherapy or not for this condition. Will continue to monitor this patient closely. 2. Acute hypoxemic respiratory failure secondary to condition #1. The patient is requiring only 2 liters of oxygen by nasal cannula. He has been a longstanding smoker, but he quit a few years ago. Will continue with the same management. 3. Mild dementia. Will continue with Aricept. 4. Paroxysmal atrial fibrillation. Heart rate is stable. Will continue digoxin for that condition. 5. Hyperlipidemia. Will continue with statins. 6. Anxiety disorder. Will continue with Xanax. 7. Disposition. At this point, the plan is to send him to rehab facility. cc: Dev Albarado MD
[2019-05-30] MEDS: CARDIZEM 100 MG/NS 100 MG/100 ML IVPB IV SCH (12:18)
--- NOTE | 2019-05-30 13:04 | EKG Report ---
Test Performed on : 05/30/2019 12:09:52 PM Test Reason : afib, occassional rvr Blood Pressure : / mmHG Vent. Rate : 105 BPM Atrial Rate : 120 BPM P-R Int : 000 ms QRS Dur : 094 ms QT Int : 344 ms P-R-T Axes : 000 066 -04 degrees QTc Int : 454 ms Atrial fibrillation. with rapid ventricular response. Abnormal QRS-T angle, consider primary T wave abnormality Abnormal ECG When compared with ECG of 23-MAY-2019 11:38, (Unconfirmed) Criteria for Septal infarct are no longer present Confirmed by Kd Briceño MD ([id number]) on 05/31/2019 7:17:07 AM
--- NOTE | 2019-05-30 13:27 | HEMO/ONC PROGRESS NOTE ---
DATE: 05/30/2019 SUBJECTIVE: The patient is still lying in bed this morning. His breakfast is on his bedside tray. He states he wants to wait till his son gets here before he eats. The patient states that he is feeling very good, that he wishes to go home at this time. He is aware of his cancer diagnosis and states that if it is left up to him he does not want to do any therapy. OBJECTIVE: Vital Signs: Temperature 98.2 degrees, pulse rate 114, respiratory rate 17, blood pressure 109/72, O2 saturation 95% on Venturi mask at 50%. He is in 0/10 pain. General: This is an ill-appearing elderly male in no acute distress. HEENT: Sclerae is anicteric. PERRLA. Oral mucosa is normal. Cardiovascular: Normal S1, S2. Heart rate and rhythm is tachycardic. Respiratory: Lung sounds are somewhat diminished in the lower bases but clear to auscultation. Normal respiratory effort. Abdomen: Soft, nontender. Positive bowel sounds. Extremities: No lower extremity edema noted. Neurological: He is awake, alert, oriented. No focal motor deficits noted. LABORATORY: The patient has not had labs drawn 05/26/2019. ASSESSMENT AND PLAN: 1. Left lower lobe adenocarcinoma, moderately differentiated consistent with pulmonary primary. The patient is aware of his cancer diagnosis. At this time the patient states he does not want to pursue chemotherapy. Appears he may be discharged to a rehab. He can reach out to Oncology at any time to discuss treatment options. The patient's bone scan showed uptake at the right hemipelvis from the L4 and L5. We will continue to evaluate outpatient should he continue to pursue therapy. 2. Continue the patient on physical therapy. He needs to be out of bed. He should eat his meals out of bed. Use physical therapy to ambulate the patient as much as possible . 3. Deep vein thrombosis prophylaxis. Continue the patient on sequential compression devices and Lovenox daily. 4. History of atrial fibrillation. 5. Hypoxia. The patient likely has underlying chronic obstructive pulmonary disease. I do not think this is from his lung cancer. He is unable to wean off oxygen at this time. He will likely need to go home with oxygen. Dictated by LULU Roblero for Hari Clemons MD cc: Hari Clemons MD [facility]
--- NOTE | 2019-05-30 16:38 | EKG Report ---
Test Performed on : 05/30/2019 4:16:20 PM Test Reason : rhythm change Blood Pressure : / mmHG Vent. Rate : 074 BPM Atrial Rate : 060 BPM P-R Int : 000 ms QRS Dur : 094 ms QT Int : 380 ms P-R-T Axes : 000 055 037 degrees QTc Int : 421 ms Atrial fibrillation. Abnormal ECG When compared with ECG of 30-MAY-2019 12:09, (Unconfirmed) No significant change was found Confirmed by Kd Briceño MD ([id number]) on 05/31/2019 7:19:20 AM
[2019-05-30] MEDS: LOVENOX SUBQ SCH (20:00)
[2019-05-31] MEDS: CARDIZEM 100 MG/NS 100 MG/100 ML IVPB IV SCH (01:02)
--- NOTE | 2019-05-31 02:45 | PULMONOLOGY PROGRESS NOTE ---
DATE: 05/30/2019 SUBJECTIVE: The patient is awake and alert. He is without specific complaints. OBJECTIVE: Vital Signs: The patient has been afebrile for the last 24 hours. Blood pressure is 129/72, heart rate 84, respiratory rate 20, oxygen saturation is 94% on 4 L per nasal cannula. HEENT: Pupils are reactive. Oropharynx is clear. Neck: Supple. Chest: Reveals prolonged expiratory phase. Cardiac: S1, S2. Abdomen: Soft. Extremities: Without edema. LABORATORY DATA: No new chemistry, CBC or arterial blood gas today. IMPRESSION: 1. A 78-year-old with lung cancer, stage III disease suspected. 2. Hypoxemic respiratory failure likely related to severe COPD identified on CT scan. 3. Dementia. 4. Paroxysmal atrial fibrillation. 5. Anxiety disorder. PLAN: 1. Continue to outline treatment versus no treatment per Oncology. 2. Anticipate transfer to rehabilitation stay. cc: Jae Shi MD
[2019-05-31] MEDS: XOPENEX NEB INH SCH ×4 (03:44→23:33)
[2019-05-31] MEDS: LIPITOR PO SCH (08:20)
[2019-05-31] MEDS: ARICEPT PO SCH (08:20)
[2019-05-31] MEDS: LANOXIN PO SCH (08:21)
[2019-05-31] MEDS: REMERON PO SCH (08:21)
[2019-05-31 09:14] LABS: BASO# 0.02 X1000 (0.0-0.2); BASO% 0.2 % (0.0-0.8); EOS# 0.21 X1000 (0.0-0.7); EOS% 2.6 % (0.0-10.0); HEMATOCRIT 39.7 % (42.0-52.0); HEMOGLOBIN 13.2 g/dL (14.0-18.0); LYMPH# 0.73 X1000 (1.2-3.4); LYMPH% 8.9 % (20.5-51.1); MCH 29.6 PG (27-31); MCHC 33.2 g/dL (33-37); MONO# 0.56 X1000 (0.11-0.59); MONO% 6.8 % (1.7-9.3); MPV 9.9 FL (7.4-10.4); NEUT# 6.67 X1000 (1.4-6.5); NEUT% 81.5 % (42.2-75.2); PLT 233 X1000 (130-400); RBC 4.46 XMIL (4.7-6.1); WBC 8.19 X1000 (4.8-10.8)
[2019-05-31 09:44] LABS: CALCIUM 10.1 mg/dL (8.8-10.2); CREATININE 1.3 mg/dL (0.7-1.2); MAGNESIUM 1.8 mg/dL (1.5-2.7); POTASSIUM 4.5 mmol/L (3.5-5.1)
--- NOTE | 2019-05-31 10:16 | PROGRESS NOTE ---
DATE: 05/31/2019 INTERVAL HISTORY: No acute events overnight. SUBJECTIVE: He denies any complaints. He is feeling slightly stronger than before. He states he did not want to go for chemotherapy and he had a discussion with his son about it. His diltiazem drip was stopped overnight because of bradycardia. VITALS: Temperature 98.2 degrees, pulse 73, respiratory 18, blood pressure 106/69, saturating 95% on 3 to 4 L nasal cannula. PHYSICAL EXAMINATION: General: Not in acute distress. HEENT: Oral cavity is moist. He is eating his breakfast. Lungs: Air entry bilaterally equal. No wheeze, rhonchi, crackles. Cardiovascular: S1, S2 normal. No murmur or gallop. Abdomen: Soft, nontender. Extremities: No lower extremity edema. Neurologic: He is alert, he is oriented to himself. He could recognize me as his doctor. He, however, forgot the discussion he had about rehab with his son before. LABS: His CBC is unremarkable. MICROBIOLOGY: No data. IMAGING: No new data. ASSESSMENT AND PLAN: 1. Left lower lobe lung adenocarcinoma, at least stage III. The patient had decided to not opt for chemotherapy. He also has suspicions lesions of L4-L5 and right hemipelvis. 2. Acute hypoxic respiratory failure with longstanding smoking history. He may have a baseline chronic obstructive pulmonary disease and would require bronchodilator and oxygen at the time of discharge. 3. Others. Continue Aricept for dementia, digoxin for paroxysmal atrial fibrillation, and I will stop diltiazem as his rate is well controlled at the moment. He is not a candidate of anticoagulation considering his lung cancer and hemoptysis. Continue atorvastatin for hyperlipidemia, Xanax as needed for anxiety, and mirtazapine for insomnia. 4. Disposition. Awaiting rehab bed. Plan of care discussed with him. His questions were answered. cc: Blake Loyd MD
[2019-05-31] MEDS: DULCOLAX PR SCH ×2 (19:37→20:33)
[2019-05-31] MEDS: LOVENOX SUBQ SCH (20:33)
--- NOTE | 2019-05-31 22:01 | PULMONOLOGY PROGRESS NOTE ---
DATE: 05/31/2019 SUBJECTIVE: The patient is awake and alert. He reports he has had some difficulty with his heart "acting up" when he strained for a bowel movement. He is without complaints currently. OBJECTIVE: Vital Signs: The patient has been afebrile for the last 24 hours. Blood pressure 127/71, heart rate 85 and irregular, respiratory rate 24, oxygen saturation 94% on 4 L per nasal cannula. HEENT: Pupils are equal and reactive. Oropharynx is clear. Neck: Supple. Chest: Slight decreased breath sounds in the right base. Cardiac: S1, S2. Abdomen: Soft. Extremities: Without edema. IMPRESSION: 78-year-old with: 1. Lung cancer, stage 3 disease suspected. 2. Hypoxemic respiratory failure. 3. Severe chronic obstructive pulmonary disease. 4. Dementia. 5. Paroxysmal atrial fibrillation. 6. Constipation. PLAN: 1. We will initiate suppositories for constipation. 2. Continue oxygen for hypoxemic respiratory failure. 3. Anticipate rehabilitation stay. 4. Additional outpatient therapy for lung cancer to be considered after his rehab stay. cc: Jae Shi MD
[2019-06-01] MEDS: XOPENEX NEB INH SCH ×4 (03:00→23:24)
[2019-06-01] MEDS: REMERON PO SCH (08:40)
[2019-06-01] MEDS: DULCOLAX PR SCH ×2 (08:40→21:31)
[2019-06-01] MEDS: LANOXIN PO SCH (08:40)
[2019-06-01] MEDS: ARICEPT PO SCH (08:40)
[2019-06-01] MEDS: LIPITOR PO SCH (08:40)
[2019-06-01] MEDS: CARDIZEM CD PO SCH (09:44)
--- NOTE | 2019-06-01 10:30 | PROGRESS NOTE ---
DATE: 06/01/2019 INTERVAL HISTORY: When he went to sit on the bedside commode and was straining for a bowel movement, he went into atrial fibrillation with heart rate jumping up to 130s. He also had similar episode at nighttime. However, the heart rate came right back to within 80s. He was still in atrial fibrillation. He had a bowel movement. I had a discussion with the radiologist about his bone scan and CT scan finding, and it is more likely to be Paget's disease. However, metastasis could not be entirely ruled out. VITALS: Currently, temperature 97.6 degrees, pulse 97, respiratory rate 12, blood pressure 112/71. He is saturating 94% on 4 L nasal cannula. PHYSICAL EXAMINATION: He is not in any acute distress. Oral cavity is moist. Air entry bilaterally equal. No wheeze or rhonchi. Inspiratory crackles, bilateral infrascapular region. Cardiovascular: S1, S2 normal. Irregularly irregular. No murmur, rub, or gallop. Abdomen: Soft, nontender. No lower extremity edema. He is alert. He is oriented to himself and he states he is waiting for the rehab. He denies any chest pain or shortness of breath. LABS: No CBC or BMP today. ASSESSMENT AND PLAN: 1. Left lower lobe lung adenocarcinoma with mediastinal adenopathy, stage 3. The patient and son decided not to go for chemotherapy at the moment. The plan is to discharge him to rehab and have outpatient oncology followup. 2. 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 He is asymptomatic so I would not treat it, though the metastasis has not completely been excluded. Depending on his course, he may or may not need bone biopsies to confirm. 3. Acute hypoxic respiratory failure with longstanding smoking history, likely related to baseline chronic obstructive pulmonary disease. Continue albuterol, ipratropium nebulization, and oxygen to maintain oxygen saturation more than 92%. 4. Atrial fibrillation with rapid ventricular rate. Continue home digoxin. Start patient on oral diltiazem and Eliquis for primary cerebrovascular accident prophylaxis. 5. Others. Continue Aricept for dementia, Xanax as needed for anxiety, mirtazapine for insomnia, atorvastatin for hyperlipidemia. 6. Disposition. Awaiting insurance approval for rehab placement. Plan of care discussed with the patient. I will keep the son informed. I will, in fact, discontinue apixaban since he has had hemoptysis recently and it can make it worse. cc: Blake Loyd MD
[2019-06-01] MEDS ORDERED: ELIQUIS PO SCH (21:00)
[2019-06-02] MEDS: XOPENEX NEB INH SCH ×3 (05:24→16:12)
[2019-06-02] MEDS: CARDIZEM CD PO SCH (08:04)
[2019-06-02] MEDS: LIPITOR PO SCH (08:04)
[2019-06-02] MEDS: REMERON PO SCH (08:05)
[2019-06-02] MEDS: LANOXIN PO SCH (08:05)
[2019-06-02] MEDS: DULCOLAX PR SCH (08:05)
[2019-06-02] MEDS: ARICEPT PO SCH (08:05)
[2019-06-02 09:13] LABS: BASO# 0.03 X1000 (0.0-0.2); BASO% 0.4 % (0.0-0.8); EOS# 0.15 X1000 (0.0-0.7); EOS% 1.9 % (0.0-10.0); HEMATOCRIT 40.6 % (42.0-52.0); HEMOGLOBIN 13.3 g/dL (14.0-18.0); IMM GRAN# 0.02 X1000 (0.0-0.04); IMM GRAN% 0.2 % (0.0-0.5); LYMPH# 0.78 X1000 (1.2-3.4); LYMPH% 9.7 % (20.5-51.1); MCH 29.2 PG (27-31); MCHC 32.8 g/dL (33-37); MONO# 0.59 X1000 (0.11-0.59); MONO% 7.3 % (1.7-9.3); MPV 9.9 FL (7.4-10.4); NEUT% 80.5 % (42.2-75.2); PLT 226 X1000 (130-400); RBC 4.56 XMIL (4.7-6.1); RDW 14.1 % (11.5-14.5); WBC 8.07 X1000 (4.8-10.8)
[2019-06-02 09:35] LABS: AGAP 15; BUN 29 mg/dL (8-22); CALCIUM 10.1 mg/dL (8.8-10.2); CHLORIDE 94 mmol/L (98-107); COSMO 273; CREATININE 1.1 mg/dL (0.7-1.2); ESTIMATED GFR > 60; GLUCOSE 148 mg/dL (70-104); MAGNESIUM 1.9 mg/dL (1.5-2.7); POTASSIUM 4.1 mmol/L (3.5-5.1); SODIUM 132 mmol/L (136-145); TCO2 23 mmol/L (25-35)
[2019-06-02] MEDS ORDERED: NS 500 ML IV SCH (10:00)
[2019-06-02] MEDS: ZOFRAN IV PRN (17:21)
[2019-06-02 19:50] VITALS: BP 124/63
--- NOTE | 2019-06-03 07:03 | DISCHARGE SUMMARY ---
ADMISSION DATE: 05/24/2019 DISCHARGE DATE: 06/02/2019 DISCHARGE DISPOSITION: Home with hospice. DISCHARGE CONDITION: Hemodynamically stable. He is saturating 96% on 3 to 4 L nasal cannula at rest. He is denying any chest pain or shortness of breath. He does not have any more hemoptysis. DISCHARGE DIAGNOSES: 1. Left lower lobe lung adenocarcinoma with mediastinal adenopathy, stage III. 2. 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 3. Acute hypoxic respiratory failure with longstanding smoking history. 4. Suspected advanced chronic obstructive pulmonary disease. 5. Atrial fibrillation with rapid ventricular rate. 6. Hemoptysis in the setting of lung adenocarcinoma. OTHER DIAGNOSES: 1. History of dementia. 2. History of atrial fibrillation. 3. History of essential hypertension. 4. History of dyslipidemia. DISCHARGE MEDICATIONS: 1. Donepezil 5 mg daily. 2. Atorvastatin 40 mg daily. 3. Aspirin 81 mg daily. 4. Mirtazapine 50 mg daily. 5. Sertraline 100 mg at nighttime. 6. Diltiazem 120 mg daily controlled release 60 capsules with 1 refill has been prescribed. 7. Bisacodyl 10 mg per rectal b.i.d. for constipation. 8. Digoxin 125 mcg daily. 9. Therapeutic anticoagulation was not started considering his hemoptysis, and he was advised to have outpatient follow up with his regular provider. Discussed about need for anticoagulation in future depending on his course. VITAL SIGNS: At the time of discharge, temperature 97.3 degrees, pulse 85, respiratory 21 blood pressure 102/51 and saturating 96% on 4 L nasal cannula. PHYSICAL EXAMINATION: He is not in acute distress. Oral cavity is moist. He has decreased lung sounds bilateral lung francis without any wheeze, rhonchi, or crackles. S1, S2 normal. Irregularly irregular. No murmur, rub, or gallop. Abdomen is Soft and nontender. No lower extremity edema. He was alert. He was oriented to himself. He does have short-term memory loss. He is following all simple commands. He was able to work with physical therapy. LABORATORY: Significant labs during hospital admission and discharge: His WBC was 8000, hemoglobin 13.3, and platelets of 226,000. His sodium is 132, chloride 94, BUN 29, and creatinine 1.1. His magnesium is 1.9. He is currently getting normal saline intravenous fluids since his oral intake was low. SIGNIFICANT IMAGING DURING HOSPITAL ADMISSION: Chest x-ray on admission did not have any acute cardiopulmonary process. Head CT on admission did not have any acute process. There was severe vascular calcification of the carotid siphons bilaterally. Pulmonary arteriogram on 05/23 did not have any pulmonary embolism, but it had suspicious left lower lobe pulmonary mass, severe mediastinal lymphadenopathy, cardiomegaly, and severe COPD. Abdomen and pelvis CT had abnormal mineralization of the right hemipelvis, sacrum, L4, L5, and the Paget's disease was likely consideration. Other possibilities were lymphoma and metastasis. Otherwise, did not have any acute process. Lung biopsy on 05/25 specimen had suggested adenocarcinoma moderately differentiated consistent with pulmonary per primary. Chest x-ray on post biopsy had a very small left pneumothorax, which resolved on its own. Body scan nuclear medicine on 05/26 had increased uptake associated with right hemipelvis and to a lesser degree sacrum, L4, L5 corresponding to abnormal mineralization seen on recent CT. The top differential was still Paget's disease given the pattern on the CT. However, metastatic disease could not be completely excluded. Electrocardiogram during hospital admission had atrial fibrillation with rapid ventricular response. CONSULTATIONS DURING HOSPITAL ADMISSION: 1. Pulmonology, Dr. Shi. 2. Oncology, Dr. Clemons. HOSPITAL COURSE SUMMARY: Mr. Millan is a 78-year-old man who came to the hospital on 05/23/2019 with chief complaints of weakness, which has been an ongoing issue since several weeks. However, in the hospital, he was noted to have hemoptysis so he underwent a CT scan pulmonary angiogram to look for pneumonia, pulmonary embolism, and lung mass. Unfortunately, detected left lower lobe lung mass with severe mediastinal lymphadenopathy. His aspirin was initially held after which his hemoptysis stopped and a lung biopsy detected lung adenocarcinoma. Oncology and Pulmonology team were on board after understanding his stage III disease. The patient and his son, who is the surrogate decision maker, had decided to not pursue any therapy, and wanted to pursue comfort measures and palliative care. [facility] team was consulted. Patient also developed atrial fibrillation with rapid ventricular response, and diltiazem was added to his regimen which controlled his heart rate. His length of stay was prolonged because of pending insurance approval since initial plan was to send the patient to rehab, and help him get stronger and possibly consider chemotherapy after that. However, later on the son had changed his mind, and he wanted to take the patient home on home hospice so the arrangements have been made. TIME SPENT: More than 30 minutes were spent discharging the patient. cc: Blake Loyd MD
== END 2019-06-02 20:13 | disposition hospice, home (50) | DRG 180 ==
LOC: SUPCPDRO → 3N 10:58 → ED 10:58 → SUATTDRO 10:59 → 2N 19:20 → SUATTDRO 05-24 12:37
PROVIDERS: ATTEND Internal Medicine